=== PATIENT | male | born 1940 | race Caucasian/White ===

== ENCOUNTER 2020-06-22 15:47 | Observation (INO) | payer MEDICARE, OTHER ==
--- NOTE | 2020-06-22 16:20 | EDM.PDOC ---
ED HPI GENERAL MEDICAL PROBLEM - General Chief Complaint: General Stated Complaint: weak, short of breath with activity Time Seen by Provider: 06/22/20 15:50 Source of Information: Reports: Patient, Other ([facility] staff) History Limitations: Reports: No Limitations - History of Present Illness INITIAL COMMENTS - FREE TEXT/NARRATIVE: Patient sent to ER for further evaluation of increased Creatinine. Reportedly more fatigued the last few days. Staff said patient more SOB but patient denies this and says he has been SOB for years and today is unchanged. He says he feels well other than the fatigue. No other acute changes identified with ROS. Staff reported "small emesis" last night from patient "eating ice cream too quickly". No issues with eating today. - Related Data Allergies Allergy/AdvReac Type Severity Reaction Status Date / Time celecoxib [From Celebrex] Allergy Other Verified 06/22/20 15:57 dicloxacillin Allergy Other Verified 06/22/20 15:57 vancomycin Allergy Other Verified 06/22/20 15:57 Past Medical History Cardiovascular History: Reports: Aneurysm (AAA), Heart Failure, High Cholesterol Respiratory History: Reports: COPD, Sleep Apnea, Other (See Below) (Asbestosis) Gastrointestinal History: Reports: Chronic Constipation, GERD Genitourinary History: Reports: BPH, Chronic Renal Insuffiency Musculoskeletal History: Reports: Back Pain, Chronic, Osteoporosis, Other (See Below) (chronic generalized weakness) Neurological History: Reports: Neuropathy, Peripheral, Other (See Below) (Ataxia) Psychiatric History: Reports: Anxiety, Dementia, Depression Endocrine/Metabolic History: Reports: Diabetes, Type II, Hypothyroidism Hematologic History: Reports: Anemia (chronic disease), Other (See Below) (thrombocytopenia) - Infectious Disease History Infectious Disease History: Reports: MRSA ED ROS GENERAL - Review of Systems Review Of Systems: Comprehensive ROS is negative, except as noted in HPI. ED EXAM, GENERAL - Physical Exam Exam: See Below Exam Limited By: No Limitations General Appearance: Alert, WD/WN, No Apparent Distress Eye Exam: Bilateral Eye: EOMI, PERRL Ears: Hearing Grossly Normal Nose: No: Nasal Deformity, Nasal Swelling, Nasal Drainage Throat/Mouth: Normal Lips, Normal Voice, No Airway Compromise Head: Atraumatic, Normocephalic Neck: Supple, Non-Tender, Full Range of Motion Respiratory/Chest: No Respiratory Distress, Lungs Clear, Normal Breath Sounds, No Accessory Muscle Use, Chest Non-Tender Cardiovascular: Regular Rate, Rhythm, No Murmur GI/Abdominal: Soft, Non-Tender, No Distention (Male) Exam: Deferred Rectal (Males) Exam: Deferred Back Exam: No: CVA Tenderness (L), CVA Tenderness (R), Muscle Spasm Extremities: Non-Tender, No Pedal Edema, Normal Capillary Refill Neurological: Alert, Normal Cognition, No Motor/Sensory Deficits Psychiatric: Normal Affect, Normal Mood Skin Exam: Warm, Dry, Intact, Normal Color #1 Interpretation EKG Date: 06/22/20 Time: 16:54 Rhythm: Other (1st degree AV block) Rate (Beats/Min): 61 [place]: Normal P-Wave: Present QRS: RBBB ST-T: Normal QT: Normal Comparison: NA - No Prior EKG Course - Vital Signs Last Recorded V/S: Last Vital Signs Temp 36.8 C 06/22/20 15:51 Pulse 73 06/22/20 15:51 Resp 18 06/22/20 15:51 BP 140/75 06/22/20 15:51 Pulse Ox 95 06/22/20 15:51 - Orders/Labs/Meds Orders: Active Orders 24 hr Category Date Time Status EKG Documentation Completion [RC] ASDIRECTED Care 06/22/20 16:17 Active Chest 1V Frontal [CR] Stat Exams 06/22/20 16:15 Taken Sodium Chloride 0.9% [Normal Saline] 500 ml Med 06/22/20 16:30 Active IV .BOLUS Sodium Chloride 0.9% [Saline Flush] Med 06/22/20 16:29 Active 10 ml FLUSH ASDIRECTED PRN Isolation [COMM] Routine Oth 06/22/20 16:17 Active Saline Lock Insert [OM.PC] Routine Oth 06/22/20 16:29 Ordered EKG 12 Lead [EK] Stat Ther 06/22/20 16:17 Ordered Medication Orders Sodium Chloride (Normal Saline) 500 mls @ 500 mls/hr IV .BOLUS ALCON Last Admin: 06/22/20 17:04 Dose: 500 mls/hr Documented by: SALVADOR Sodium Chloride (Saline Flush) 10 ml FLUSH ASDIRECTED PRN PRN Reason: Keep Vein Open Last Admin: 06/22/20 17:04 Dose: 10 ml Documented by: SALVADOR Labs: Laboratory Tests 06/22/20 06/22/20 06/22/20 Range/Units 14:00 14:00 16:40 D-Dimer, Quantitative 4230 H (0-400) ng/mL NT-Pro-B Natriuret Pep 310 H (0-125) pg/mL Specimen Type Urinblad Urine Color Yellow Urine Appearance Clear Urine pH 5.5 (5.0-9.0) Ur Specific [place] 1.010 (1.005-1.030) Urine Protein Negative (NEGATIVE) mg/dL Urine Glucose (UA) Negative (NEGATIVE) mg/dL Urine Ketones Negative (NEGATIVE) mg/dL Urine Occult Blood Negative (NEGATIVE) Urine Nitrite Negative (NEGATIVE) Urine Bilirubin Negative (NEGATIVE) Urine Urobilinogen 0.2 (0.2-1.0) E.U./dL Ur Leukocyte Esterase Moderate H (NEGATIVE) U Hyaline Cast (Auto) Few Urine RBC Not seen /HPF Urine WBC 0-5 /HPF Ur Epithelial Cells Rare /LPF Urine Bacteria Rare (NONE TO FEW) /HPF Urine Mucus Rare H (NEGATIVE) /LPF Meds: Medications Generic Name Dose Route Start Last Admin Trade Name Freq PRN Reason Stop Dose Admin Sodium Chloride 500 mls @ 500 mls/hr 06/22/20 16:30 06/22/20 17:04 Normal Saline IV 500 mls/hr .BOLUS ALCON Administration Sodium Chloride 10 ml 06/22/20 16:29 06/22/20 17:04 Saline Flush FLUSH 10 ml ASDIRECTED PRN Administration Keep Vein Open - Radiology Interpretation Free Text/Narrative:: Patchy changes on xray/may reflect pneumonia - Re-Assessments/Exams Free Text/Narrative Re-Assessment/Exam: 06/22/20 17:57 Normal WBC. Anemia noted. Platelets 92. Potassium 5 Cr 2.48 (1.6 when checked several months ago) LFTs normal. DDimer elevated to over 4000. Unable to scan for PE due to renal dysfunction. Covid testing performed at [facility] yesterday/results pending. Cannot rule out Covid infection at this time. Call placed to [facility] in [place] and patient discussed with . She will contact us regarding transfer and admission to their facility after looking at their bed status. 19:20 No bed available at [facility]. They gave permission for outside hospitalization. Also no available beds at [facility] or [facility] where they have ability to perform VQ scan. Plan at this time is to admit observation here and give fluids to see if creatinine can be improved to point were PE scan can be performed. Will also test for Covid in AM. Patient agreeable with plan. Departure - Departure Time of Disposition: 19:23 Disposition: Refer to Observation Condition: Good Clinical Impression: Elevated creatine kinase level, Elevated d-dimer - Discharge Information Referrals: Trupti Quiroz PA [Primary Care Provider] - Forms: ED Department Discharge Sepsis Event Note (ED) - Evaluation Sepsis Screening Result: No Definite Risk - Focused Exam Vital Signs: Vital Signs Temp Pulse Resp BP Pulse Ox 06/22/20 15:51 36.8 C 73 18 140/75 95 - Problem List & Annotations (1) Elevated creatine kinase level SNOMED Code(s): 634099928 Code(s): R74.8 - ABNORMAL LEVELS OF OTHER SERUM ENZYMES Status: Acute Priority: High Current Visit: Yes Annotation/Comment:: Has history of stage 3 renal disease. Previous Cr of 1.6 several months ago. No etiology identified for acute change. Will give IV fluid overnight and reassess level in AM (2) Elevated d-dimer SNOMED Code(s): 535041031 Code(s): R79.89 - OTHER SPECIFIED ABNORMAL FINDINGS OF BLOOD CHEMISTRY Status: Acute Priority: High Current Visit: Yes Annotation/Comment:: Patient denies any change in chronic level of SOB. [facility] felt that he was worse recently. Elevated DDimer noted. No history of previous PEs. Unable to perform CT scan due to renal function. Unable to transfer to [place] for VQ due to no available beds. Plan at this time is to hydrate patient with IV fluids and see if Cr can be improved to previous level and then consider scan. If it does not improve, will need to reconsider potential transfer to [place] for VQ scan to fully rule out PE. Is it noted that pt has normal respiratory rate and O2 sats currently. No chest pain complaint. (3) Chronic kidney disease SNOMED Code(s): 654516163 Code(s): N18.9 - CHRONIC KIDNEY DISEASE, UNSPECIFIED Status: Acute Priority: Medium Current Visit: Yes Qualifiers: Chronic kidney disease stage: stage 3 (moderate) (4) COPD (chronic obstructive pulmonary disease) SNOMED Code(s): 49622080 Code(s): J44.9 - CHRONIC OBSTRUCTIVE PULMONARY DISEASE, UNSPECIFIED Status: Chronic Priority: Low Current Visit: No Qualifiers: COPD type: unspecified COPD Qualified Code(s): J44.9 - Chronic obstructive pulmonary disease, unspecified (5) Heart failure SNOMED Code(s): 63777512 Code(s): I50.9 - HEART FAILURE, UNSPECIFIED Status: Chronic Priority: Low Current Visit: No Annotation/Comment:: stable per history. Pro BNP 1717 tonight. No evidence of acute overload noted on physical exam. Qualifiers: Heart failure type: unspecified (6) Diabetes SNOMED Code(s): 74253042 Code(s): E11.9 - TYPE 2 DIABETES MELLITUS WITHOUT COMPLICATIONS Status: Acute Priority: Medium Current Visit: No Qualifiers: Diabetes mellitus type: type 2 - Problem List Review Problem List Initiated/Reviewed/Updated: Yes - My Orders Last 24 Hours: My Active Orders 06/22/20 16:15 Chest 1V Frontal [CR] Stat 06/22/20 16:17 EKG Documentation Completion [RC] ASDIRECTED Isolation [COMM] Routine EKG 12 Lead [EK] Stat 06/22/20 16:29 Sodium Chloride 0.9% [Saline Flush] 10 ml FLUSH ASDIRECTED PRN Saline Lock Insert [OM.PC] Routine 06/22/20 16:30 Sodium Chloride 0.9% [Normal Saline] 500 ml IV .BOLUS - Assessment/Plan Admission H&P: Please use this note as an admission H&P Last 24 Hours: My Active Orders 06/22/20 16:15 Chest 1V Frontal [CR] Stat 06/22/20 16:17 EKG Documentation Completion [RC] ASDIRECTED Isolation [COMM] Routine EKG 12 Lead [EK] Stat 06/22/20 16:29 Sodium Chloride 0.9% [Saline Flush] 10 ml FLUSH ASDIRECTED PRN Saline Lock Insert [OM.PC] Routine 06/22/20 16:30 Sodium Chloride 0.9% [Normal Saline] 500 ml IV .BOLUS Assessment:: as above. Patient stable and suitable for general supervision Plan: as above. Anticipate 1-2 day stay while renal response to IV fluids assessed and decision made regarding further evaluation of elevated DDimer.
[2020-06-22] MEDS ORDERED: Sodium Chloride 0.9% 10 ML Syringe FLUSH PRN (16:29)
[2020-06-22] MEDS ORDERED: Sodium Chloride 0.9% 500 ML IV SCH (16:30)
[2020-06-22] MEDS ORDERED: Sodium Chloride 0.9% 1,000 ML IV ONE (19:41)
[2020-06-22] MEDS ORDERED: Albuterol 8 GM Inhaler INH PRN (23:02)
[2020-06-23] MEDS ORDERED: Sodium Chloride 0.9% 1,000 ML IV SCH (05:00)
[2020-06-23] MEDS ORDERED: Omeprazole 20 MG Cap.CR PO SCH (08:00)
[2020-06-23] MEDS ORDERED: Lisinopril 20 MG Tab PO SCH (08:00)
[2020-06-23] MEDS ORDERED: Furosemide 20 MG Tab PO SCH (08:00)
[2020-06-23] MEDS ORDERED: Finasteride 5 MG Tab PO SCH (08:00)
[2020-06-23] MEDS ORDERED: traMADol 50 MG Tab PO SCH (08:00)
[2020-06-23] MEDS ORDERED: Mometasone Furoate HFA 200 mcg/Puff 13 GM Inhaler INH SCH (08:00)
[2020-06-23] MEDS ORDERED: Aspirin 81 MG Tab.EC PO SCH (08:00)
[2020-06-23] MEDS ORDERED: amLODIPine 5 MG Tab PO SCH (08:00)
[2020-06-23] MEDS: Ferrous Sulfate 325 MG Tab PO SCH ×2 (08:34→12:39)
[2020-06-23] MEDS ORDERED: BUPROPION HCL 100 MG PO SCH (09:00)
[2020-06-23] MEDS ORDERED: Enoxaparin 30 MG/0.3 ML Syringe SUBCUT ONE (10:41)
[2020-06-23] MEDS ORDERED: Albuterol 6.7 GM Inhaler INH PRN (14:13)
--- NOTE | 2020-06-23 16:15 | PCM.DCSUM1 ---
Discharge Summary - Hospital Course Brief History: Patient admitted for further evaluation and treatment of complaints of creatinine elevation/fatigue. Diagnosis: Stroke: No - Discharge Data Discharge Date: 06/23/20 Discharge Disposition: Home, Self-Care 01 Condition: Good - Referral to Home Health Primary Care Physician: BOOGIE Marvin - Discharge Diagnosis/Problem(s) (1) Elevated creatine kinase level SNOMED Code(s): 391488540 ICD Code: R74.8 - ABNORMAL LEVELS OF OTHER SERUM ENZYMES Status: Acute Priority: High Current Visit: Yes Problem Details: Has history of stage 3 renal disease. Previous Cr of 1.6 several months ago. No etiology identified for acute change. Received IV fluid overnight with some improvement of creatinine level, however still above 2.0 Renal US today showed polycystic kidneys, enlarged prostate, and thickened bladder wall. No hydronephrosis. UA unremarkable. Patient to follow up tomorrow with PCP. Recommend referral to urology and nephrology for ongoing follow up/evaluation. (2) Elevated d-dimer SNOMED Code(s): 692185265 ICD Code: R79.89 - OTHER SPECIFIED ABNORMAL FINDINGS OF BLOOD CHEMISTRY Status: Acute Priority: High Current Visit: Yes Problem Details: Patient denies any change in chronic level of SOB. [facility] felt that he was worse recently. Elevated DDimer noted. No history of previous PEs. Unable to perform CT scan due to renal function. No chest pain complaint. O2 sats upper 90s/normal respiratory rate. No clinical evidence of PE. Normal LE US to rule out DVT. Patient denies increased SOB. Primary provider Valdo contacted and patient will follow up with her for referral as outpatient to [place] for VQ (3) Enlarged prostate SNOMED Code(s): 146855983 ICD Code: N40.0 - BENIGN PROSTATIC HYPERPLASIA WITHOUT LOWER URINRY TRACT SYMP Status: Acute Priority: High Current Visit: Yes Problem Details: Found to have enlarged prostate on US. 5.4x4.9x4.8cm. No significant urinary retention noted on US. May be having some renal effect. Patient will need referral to urology by PCP. (4) Polycystic kidney SNOMED Code(s): 920191111 ICD Code: Q61.3 - POLYCYSTIC KIDNEY, UNSPECIFIED Status: Acute Priority: Medium Current Visit: Yes Problem Details: Polycyctic kidneys noted on US study. Recommend PCP refer patient to nephrology for further evaluation. (5) Chronic kidney disease SNOMED Code(s): 537101147 ICD Code: N18.9 - CHRONIC KIDNEY DISEASE, UNSPECIFIED Status: Acute Priority: Medium Current Visit: Yes Qualifiers: Chronic kidney disease stage: stage 3 (moderate) (6) COPD (chronic obstructive pulmonary disease) SNOMED Code(s): 22756569 ICD Code: J44.9 - CHRONIC OBSTRUCTIVE PULMONARY DISEASE, UNSPECIFIED Status: Chronic Priority: Low Current Visit: No Qualifiers: COPD type: unspecified COPD Qualified Code(s): J44.9 - Chronic obstructive pulmonary disease, unspecified (7) Heart failure SNOMED Code(s): 46663145 ICD Code: I50.9 - HEART FAILURE, UNSPECIFIED Status: Chronic Priority: Low Current Visit: No Problem Details: stable per history. Pro BNP 1717 tonight. No evidence of acute overload noted on physical exam. Qualifiers: Heart failure type: unspecified (8) Diabetes SNOMED Code(s): 04907567 ICD Code: E11.9 - TYPE 2 DIABETES MELLITUS WITHOUT COMPLICATIONS Status: Acute Priority: Medium Current Visit: No Qualifiers: Diabetes mellitus type: type 2 - Patient Summary/Data Hospital Course: [facility] contacted and declined patient's admission to their facility as they had no available beds. Patient admitted observation here and received IV fluids to see if any significant improvement would result in regards to kidney functio n. DDimer elevated but unable to perform CT angio for further evaluation/rule out blood clots. As noted above, patient denied any chest pain or increased SOB. It was [facility] that felt he appeared more SOB. Unable to send to [facility] or [place] for VQ due to facilities being on divert. Patient rested comfortably overnight. Vital signs stable. No evidence of any acute respiratory issues or other signs of illness observed. Recheck of labs showed some improvement of renal function but not enough to allow for CT angio. Call placed again to [facility] in [place] and they felt that patient could follow up for VQ at [facility] as outpatient and no immediate transfer indicated. Options discussed with patient. He would like to have PE formally ruled out but again said that he currently feels fine. He wished for discharge back to [facility] and will follow up with Valdo at clinic to get VQ scan coordinated. As a precaution, US study of both lower legs performed that was negative for DVT. Given the elevated Creatinine, renal US performed and he was noted to have very enlarged prostate. No obvious urine retention noted on US, however suspect that he may be having retention issues that could be affecting renal function. Also noted to have polycystic kidneys and wall thickening of bladder. Normal UA. No hydronephrosis. To discuss referral to Urology/Nephrology at follow up with Valdo. Call placed to Valdo and she was updated as to all of the above and will be following up with the patient for above concerns. Negative Covid test - Patient Instructions Diet: Usual Diet as Tolerated Other/Special Instructions: Follow up GISELLE with your provider, Valdo. You need referral arranged to see Nephrology, Urology, and also have a VQ scan scheduled at [facility]. Follow up otherwise as needed if you have sudden worsening problems. - Discharge Plan Home Medications: Home Meds Albuterol Sulfate [Proair Respiclick] 2 puff IH Q4HR PRN 06/22/20 [History] Aspirin [Aspirin EC] 81 mg PO DAILY 06/22/20 [History] Budesonide/Formoterol [Symbicort 160-4.5 MCG] 2 puff INH BID 06/22/20 [History] Cholecalciferol (Vitamin D3) [Vitamin D3] 2,000 unit PO DAILY 06/22/20 [History] Ferrous Sulfate 325 mg PO TID 06/22/20 [History] Finasteride 5 mg PO DAILY 06/22/20 [History] Fluticasone Propionate [Flonase] 2 spray NS DAILY 06/22/20 [History] Furosemide 20 mg PO DAILY 06/22/20 [History] Gabapentin [Neurontin] 600 mg PO 2000 06/22/20 [History] Lactobacillus Acidophilus [Acidophilus] 1 each PO DAILY 06/22/20 [History] Levothyroxine Sodium [Synthroid] 175 mcg PO ACBREAKFAST 06/22/20 [History] Lidocaine 5% [Lidoderm 5%] 1 patch TOP Q12HR PRN 06/22/20 [History] Omeprazole 20 mg PO DAILY 06/22/20 [History] Sennosides/Docusate Sodium [Senna-S 8.6-50 mg Tablet] 1 each PO BID 06/22/20 [History] Tamsulosin [Tamsulosin 24 Hr] 0.4 mg PO 199906/22/20 [History] amLODIPine [Norvasc] 10 mg PO DAILY 06/22/20 [History] atorvaSTATin [Lipitor] 20 mg PO BEDTIME 06/22/20 [History] buPROPion HCL [Bupropion HCl Sr] 100 mg PO ,16 06/22/20 [History] lisinopriL [Prinivil] 20 mg PO DAILY 06/22/20 [History] traMADol [Ultram] 50 mg PO BID 06/22/20 [History] Forms: ED Department Discharge Referrals: Trupti Quiroz PA [Primary Care Provider] - - Discharge Summary/Plan Comment DC Time >30 min.: No - General Info Date of Service: 06/23/20 Admission Dx/Problem (Free Text: Elevated creatinine/enlarged prostate/polycystic kidneys/elevated DDimer Subjective Update: Patient feels fine overall. Would like to be discharged. Functional Status: Reports: Pain Controlled, Tolerating Diet, Ambulating, Urinating. Denies: New Symptoms - Review of Systems General: Reports: Fatigue (mild). Denies: Fever, Malaise, Chills, Night Sweats HEENT: Reports: No Symptoms Pulmonary: Reports: No Symptoms Cardiovascular: Reports: No Symptoms Gastrointestinal: Reports: No Symptoms Genitourinary: Reports: No Symptoms Musculoskeletal: Reports: No Symptoms, Other (no acute changes from baseline) Skin: Reports: No Symptoms Neurological: Denies: Headache, Paresthesia, Trouble Speaking, Difficulty Walking, Change in Speech Psychiatric: Reports: No Symptoms - Patient Data Vitals - Most Recent: Last Vital Signs Temp 36.4 C 06/23/20 12:40 Pulse 57 L 06/23/20 12:40 Resp 18 06/23/20 12:40 BP 147/72 H 06/23/20 12:40 Pulse Ox 95 06/23/20 12:40 Weight - Most Recent: 75.115 kg I&O - Last 24 hours: Intake & Output 06/23/20 06/23/20 06/23/20 06:59 14:59 22:59 Intake Total 1000 500 Output Total 200 Balance 800 500 Lab Results - Last 24 hrs: Laboratory Results - last 24 hr 06/22/20 06/22/20 06/22/20 Range/Units 14:00 14:00 16:40 WBC (4.0-10.2) K/uL RBC (4.33-5.41) M/uL Hgb (13.1-16.8) g/dL Hct (39.0-49.0) % MCV (84.0-98.0) fL MCH (28.2-33.3) pg MCHC (31.7-36.0) g/dL RDW (11.2-14.1) % Plt Count (150-350) K/uL Neut % (Auto) (45.0-80.0) % Lymph % (Auto) (10.0-50.0) % [place] % (Auto) (2.0-14.0) % Eos % (Auto) (0.0-5.0) % Baso % (Auto) (0.0-2.0) % Neut # (Auto) (1.40-7.00) K/uL Lymph # (Auto) (0.50-3.50) K/uL [place] # (Auto) (0.00-1.00) K/uL Eos # (Auto) (0.00-0.50) K/uL Baso # (Auto) (0.00-0.20) K/uL D-Dimer, Quantitative 4230 H (0-400) ng/mL Sodium (136-145) mmol/L Potassium (3.5-5.1) mmol/L Chloride (98-107) mmol/L Carbon Dioxide (21.0-32.0) mmol/L BUN (7-18) mg/dL Creatinine (0.51-1.17) mg/dL Est Cr Clr Drug Dosing mL/min Estimated GFR (MDRD) mL/min Glucose (74-106) mg/dL Calcium (8.5-10.1) mg/dL NT-Pro-B Natriuret Pep 310 H (0-125) pg/mL Specimen Type Urinblad Urine Color Yellow Urine Appearance Clear Urine pH 5.5 (5.0-9.0) Ur Specific Lynn 1.010 (1.005-1.030) Urine Protein Negative (NEGATIVE) mg/dL Urine Glucose (UA) Negative (NEGATIVE) mg/dL Urine Ketones Negative (NEGATIVE) mg/dL Urine Occult Blood Negative (NEGATIVE) Urine Nitrite Negative (NEGATIVE) Urine Bilirubin Negative (NEGATIVE) Urine Urobilinogen 0.2 (0.2-1.0) E.U./dL Ur Leukocyte Esterase Moderate H (NEGATIVE) U Hyaline Cast (Auto) Few Urine RBC Not seen /HPF Urine WBC 0-5 /HPF Ur Epithelial Cells Rare /LPF Urine Bacteria Rare (NONE TO FEW) /HPF Urine Mucus Rare H (NEGATIVE) /LPF SARS-CoV-2 RNA ([place]) (NEGATIVE) 06/23/20 06/23/20 06/23/20 Range/Units 07:05 07:05 08:20 WBC 3.6 L (4.0-10.2) K/uL RBC 3.18 L (4.33-5.41) M/uL Hgb 10.0 L (13.1-16.8) g/dL Hct 31.9 L (39.0-49.0) % MCV 100.3 H (84.0-98.0) fL MCH 31.4 (28.2-33.3) pg MCHC 31.3 L (31.7-36.0) g/dL RDW 13.2 (11.2-14.1) % Plt Count 82 L (150-350) K/uL Neut % (Auto) 51.0 (45.0-80.0) % Lymph % (Auto) 26.4 (10.0-50.0) % [place] % (Auto) 14.3 H (2.0-14.0) % Eos % (Auto) 8.0 H (0.0-5.0) % Baso % (Auto) 0.3 (0.0-2.0) % Neut # (Auto) 1.85 (1.40-7.00) K/uL Lymph # (Auto) 0.96 (0.50-3.50) K/uL [place] # (Auto) 0.52 (0.00-1.00) K/uL Eos # (Auto) 0.29 (0.00-0.50) K/uL Baso # (Auto) 0.01 (0.00-0.20) K/uL D-Dimer, Quantitative (0-400) ng/mL Sodium 144 (136-145) mmol/L Potassium 4.3 (3.5-5.1) mmol/L Chloride 111 H (98-107) mmol/L Carbon Dioxide 25.6 (21.0-32.0) mmol/L BUN 28 H (7-18) mg/dL Creatinine 2.17 H (0.51-1.17) mg/dL Est Cr Clr Drug Dosing 22.80 mL/min Estimated GFR (MDRD) 29 mL/min Glucose 90 (74-106) mg/dL Calcium 7.8 L (8.5-10.1) mg/dL NT-Pro-B Natriuret Pep (0-125) pg/mL Specimen Type Urine Color Urine Appearance Urine pH (5.0-9.0) Ur Specific Lynn (1.005-1.030) Urine Protein (NEGATIVE) mg/dL Urine Glucose (UA) (NEGATIVE) mg/dL Urine Ketones (NEGATIVE) mg/dL Urine Occult Blood (NEGATIVE) Urine Nitrite (NEGATIVE) Urine Bilirubin (NEGATIVE) Urine Urobilinogen (0.2-1.0) E.U./dL Ur Leukocyte Esterase (NEGATIVE) U Hyaline Cast (Auto) Urine RBC /HPF Urine WBC /HPF Ur Epithelial Cells /LPF Urine Bacteria (NONE TO FEW) /HPF Urine Mucus (NEGATIVE) /LPF SARS-CoV-2 RNA ([place]) Negative (NEGATIVE) [place] Results - Last 24 hrs: Microbiology 06/22/20 16:17 Influenza Type A Antigen Screen - Final Nasal Aspirate, Unspecified NEGATIVE INFLUENZA A VIRUS AG REFERENCE RANGE: NEGATIVE Influenza Type B Antigen Screen - Final NEGATIVE INFLUENZA B VIRUS AG REFERENCE RANGE: NEGATIVE Med Orders - Current: Current Medications Albuterol (Proventil Hfa) 0 gm INH Q4HR PRN PRN Reason: shortness of breath Amlodipine Besylate (Norvasc) 10 mg PO DAILY [facility] Last Admin: 06/23/20 08:36 Dose: 10 mg Documented by: Aspirin (Halfprin) 81 mg PO DAILY [facility] Last Admin: 06/23/20 08:32 Dose: 81 mg Documented by: Atorvastatin Calcium (Lipitor) 20 mg PO BEDTIME [facility] Ferrous Sulfate (Ferrous Sulfate) 325 mg PO TID [facility] Last Admin: 06/23/20 12:39 Dose: 325 mg Documented by: Finasteride (Proscar) 5 mg PO DAILY [facility] Last Admin: 06/23/20 08:30 Dose: 5 mg Documented by: Furosemide (Lasix) 20 mg PO DAILY [facility] Last Admin: 06/23/20 08:35 Dose: 20 mg Documented by: Gabapentin (Neurontin) 600 mg PO 1999 [facility] Sodium Chloride (Normal Saline) 1,000 mls @ 75 mls/hr IV ASDIRECTED [facility] Last Admin: 06/23/20 04:47 Dose: 75 mls/hr Documented by: Influenza Virus Vaccine (Pharmacy To Dose - Influenza Vaccine) 1 each IM ONETIME ONE Stop: 06/23/20 10:04 Levothyroxine Sodium (Levothyroxine) 175 mcg PO ACBREAKFAST [facility] Last Admin: 06/23/20 08:32 Dose: 175 mcg Documented by: Lisinopril (Prinivil) 20 mg PO DAILY [facility] Last Admin: 06/23/20 08:31 Dose: 20 mg Documented by: Mometasone Furoate (Asmanex Hfa 200mcg) 2 gm INH BID [facility] Last Admin: 06/23/20 08:50 Dose: 2 puff Documented by: Non-Formulary Medication (Bupropion Hcl [Bupropion Hcl Sr]) 100 mg PO [facility] Omeprazole (Omeprazole) 20 mg PO DAILY [facility] Last Admin: 06/23/20 08:32 Dose: 20 mg Documented by: Senna/Docusate Sodium (Senna Plus) 1 tab PO BID [facility] Last Admin: 06/23/20 08:40 Dose: 1 tab Documented by: Sodium Chloride (Saline Flush) 10 ml FLUSH ASDIRECTED PRN PRN Reason: Keep Vein Open Last Admin: 06/22/20 17:04 Dose: 10 ml Documented by: Tamsulosin HCl (Flomax) 0.4 mg PO 1999 [facility] Tramadol HCl (Ultram) 50 mg PO BID [facility] Last Admin: 06/23/20 08:30 Dose: 50 mg Documented by: Discontinued Medications Albuterol (Ventolin Hfa) 0 gm INH Q4HR PRN PRN Reason: shortness of breath Enoxaparin Sodium (Lovenox) 30 mg SUBCUT ONETIME ONE Stop: 06/23/20 10:42 Last Admin: 06/23/20 12:39 Dose: 30 mg Documented by: Sodium Chloride (Normal Saline) 500 mls @ 500 mls/hr IV .BOLUS [facility] Last Admin: 06/22/20 17:04 Dose: 500 mls/hr Documented by: Sodium Chloride (Normal Saline) 1,000 mls @ 125 mls/hr IV .BOLUS ONE Stop: 06/23/20 03:40 Last Admin: 06/22/20 20:32 Dose: 125 mls/hr Documented by: - Exam General: Reports: Alert, Cooperative, No Acute Distress HEENT: Reports: Pupils Equal, Pupils Reactive, EOMI, Mucous Membr. Moist/[place] Neck: Reports: Supple Lungs: Reports: Clear to Auscultation, Normal Respiratory Effort Cardiovascular: Reports: Regular Rate, Regular Rhythm GI/Abdominal Exam: Normal Bowel Sounds, Soft, Non-Tender, No Distention (Male) Exam: Deferred Rectal (Males) Exam: Deferred Back Exam: Denies: CVA Tenderness (L), CVA Tenderness (R), Muscle Spasm Extremities: Non-Tender, Normal Capillary Refill Skin: Reports: Warm, Dry Neurological: Reports: No New Focal Deficit Psy/Mental Status: Reports: Alert, Normal Affect, Normal Mood
[2020-06-23] MEDS ORDERED: Tamsulosin 0.4 MG Cap.ER PO SCH (20:00)
[2020-06-23] MEDS ORDERED: atorvaSTATin 10 MG Tab PO SCH (20:00)
[2020-06-23] MEDS ORDERED: Gabapentin 300 MG Cap PO SCH (20:00)
== END 2020-06-23 17:14 | disposition home or self-care (01) ==
LOC: LL.ED 15:47 → LL.MS 18:48 → UNDOADMOB 18:48 → LL.MS 19:35
PROVIDERS: ADMIT Emergency Medicine; ATTEND Emergency Medicine
DX: R74.8 Abnormal levels of other serum enzymes (principal); R79.89 Other specified abnormal findings of blood chemistry; E78.00 Pure hypercholesterolemia, unspecified; I50.9 Heart failure, unspecified; J44.9 Chronic obstructive pulmonary disease, unspecified; N18.9 Chronic kidney disease, unspecified; G89.29 Other chronic pain; G47.30 Sleep apnea, unspecified; G62.9 Polyneuropathy, unspecified; F41.9 Anxiety disorder, unspecified; F32.9 Major depressive disorder, single episode, unspecified; E11.22 Type 2 diabetes mellitus with diabetic chronic kidney disease; E03.9 Hypothyroidism, unspecified; Z88.8 Allergy status to other drugs, medicaments and biological substances; Z88.1 Allergy status to other antibiotic agents; Z20.828 Contact with and (suspected) exposure to other viral communicable diseases
CPT/HCPCS: 36415; 71045; 76770; 80048; 81001; 83880; 85025; 85379; 87804; 93005; 93970; 99285; A9270; J1650; J7030; J7040; U0002; 96360

== ENCOUNTER 2020-07-25 11:29 | Emergency (ER) | payer MEDICARE ==
[2020-07-25] MEDS ORDERED: Sodium Chloride 0.9% 10 ML Syringe FLUSH PRN (11:32)
--- NOTE | 2020-07-25 11:32 | EDM.PDOC ---
ED HPI GENERAL MEDICAL PROBLEM - General Chief Complaint: Respiratory Problem Stated Complaint: low O2 sat Time Seen by Provider: 07/25/20 11:30 Source of Information: Reports: Patient, EMS, Old Records ([facility] EMR. No paper hospital chart available.). Denies: EMS Notes Reviewed (Not available at time of dictation) History Limitations: Reports: Altered Mental Status, Other - History of Present Illness INITIAL COMMENTS - FREE TEXT/NARRATIVE: The patient was brought to the emergency room via ambulance with make up worker accompaniment with O2 initiated at 6 L/min by mask therapy. Note that the patient had some moderate to severe hypoxia with O2 sat of only 65% while taking a shower at the [place] [facility] earlier this morning. 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 The nurses at the [place] [facility] did initiate O2 at 4 L/min by mask with improvement to 90% prior to discharge, however O2 sat of only 88 to 89% by the paramedics at time of their arrival with increased O2 therapy prior to transfer as above. They did not do any other treatment prior to patient's arrival to this facility. The patient denies any chest pain/pressure, heart flutter, dizziness, orthostasis, orthopnea, diaphoresis, paresthesias, recent decreased exercise tolerance, or any other anginal-type symptoms. No recent history of abdominal pain, heartburn, nausea, diarrhea, melena, gross hematochezia, or any food intolerance, including fatty foods, etc.. He denies any gross hematuria, colic, or other UTI symptoms. The patient also denies any recent fever, cough, wheezing, dyspnea, etc., despite significant hypoxia as above. Apparently stable neurological status and confusion based on limited records and history from the [place] [facility]. The patient denies any specific pain or discomfort. Onset: Today Duration: Other (No pain) Severity: Severe (Hypoxia as above) Improves with: Reports: Other (Oxygen) Worsens with: Reports: None Context: Reports: Other (As above). Denies: Sick Contact, Trauma Associated Symptoms: Reports: Confusion (Stable chronic), Shortness of Breath. Denies: Chest Pain, Cough, Diaphoresis, Fever/Chills, Headaches, Loss of Appetite, Malaise, Nausea/Vomiting, Rash, Seizure, Syncope, Weakness Treatments RESEARCH LABORATORY MANAGER: Reports: Oxygen - Related Data Allergies Allergy/AdvReac Type Severity Reaction Status Date / Time celecoxib [From Celebrex] Allergy Other Verified 07/25/20 12:43 dicloxacillin Allergy Other Verified 07/25/20 12:43 vancomycin Allergy Other Verified 07/25/20 12:43 Home Meds: Home Meds Albuterol Sulfate [Proair Respiclick] 2 puff IH Q4HR PRN 06/22/20 [History] Aspirin [Aspirin EC] 81 mg PO DAILY 06/22/20 [History] Budesonide/Formoterol [Symbicort 160-4.5 MCG] 2 puff INH BID 06/22/20 [History] Cholecalciferol (Vitamin D3) [Vitamin D3] 2,000 unit PO DAILY 06/22/20 [History] Ferrous Sulfate 325 mg PO TID 06/22/20 [History] Finasteride 5 mg PO DAILY 06/22/20 [History] Fluticasone Propionate [Flonase] 2 spray NS DAILY 06/22/20 [History] Furosemide 20 mg PO DAILY 06/22/20 [History] Gabapentin [Neurontin] 600 mg PO 199906/22/20 [History] Levothyroxine Sodium [Synthroid] 175 mcg PO ACBREAKFAST 06/22/20 [History] Lidocaine 5% [Lidoderm 5%] 1 patch TOP Q12HR PRN 06/22/20 [History] Omeprazole 20 mg PO DAILY 06/22/20 [History] Sennosides/Docusate Sodium [Senna-S 8.6-50 mg Tablet] 1 each PO BID 06/22/20 [History] Tamsulosin [Tamsulosin 24 Hr] 0.4 mg PO 199906/22/20 [History] amLODIPine [Norvasc] 5 mg PO DAILY 06/22/20 [History] atorvaSTATin [Lipitor] 20 mg PO BEDTIME 06/22/20 [History] buPROPion HCL [Bupropion HCl Sr] 100 mg PO ,16 06/22/20 [History] lisinopriL [Prinivil] 40 mg PO DAILY 06/22/20 [History] traMADol [Ultram] 50 mg PO BID 06/22/20 [History] Lactobacillus Acidophilus [Acidophilus] 1 each PO DAILY 07/25/20 [History] guaiFENesin 2 tsp PO Q6H PRN 07/25/20 [History] Past Medical History HEENT History: Reports: Allergic Rhinitis, Hard of Hearing, Impaired Vision, Other (See Below) Other HEENT History: Nasal septal deviation. Dry eye syndrome. Presbycusis. Cardiovascular History: Reports: Aneurysm, Cardiomyopathy, Heart Failure, High Cholesterol, Hypertension, Other (See Below). Denies: CAD, Heart Murmur, NV Other Cardiovascular History: AAA. First-degree AV block, complete right bundle branch block. D-dimer elevation initially diagnosed on 06/23/2020. Recurrent CHF with diastolic dysfunction. Respiratory History: Reports: Bronchitis, Recurrent, COPD, Intubation, Previous, Pneumonia, Recurrent, Pulmonary Fibrosis, Sleep Apnea, Other (See Below). 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 Gastrointestinal History: Reports: Chronic Constipation, Colon Polyp, GERD Genitourinary History: Reports: BPH, Chronic Renal Insuffiency, Diabetic Nephropathy, Prostate Disorder, Other (See Below) Other Genitourinary History: Bilateral renal cysts versus polycystic renal disease. Diabetic nephropathy. Musculoskeletal History: Reports: Arthritis, Back Pain, Chronic, Fracture, Osteoarthritis, Osteoporosis, Other (See Below) Other Musculoskeletal History: Right hip fracture with surgery as below. 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 Neurological History: Reports: Alzheimers Disease, Cerebral Palsy, Neuropathy, Diabetic, Neuropathy, Peripheral, Other (See Below) Other Neuro History: Beginning organic brain syndrome. Generalized weakness. Psychiatric History: Reports: Anxiety, Dementia, Depression Endocrine/Metabolic History: Reports: Diabetes, Type II, Hypothyroidism, Osteopenia, Osteoporosis. Denies: Diabetes, Type I, IDDM Hematologic History: Reports: Anemia, Other (See Below) Other Hematologic History: Chronic anemia. Thrombocytopenia. Dermatologic History: Reports: Venous Stasis Dermatitis - Infectious Disease History Infectious Disease History: Reports: MRSA - Past Surgical History HEENT Surgical History: Reports: Cataract Surgery GI Surgical History: Reports: Colonoscopy Musculoskeletal Surgical History: Reports: Joint Replacement, Other (See Below) Other Musculoskeletal Surgeries/Procedures:: Right hip TEP. - Past Imaging History Past Imaging History: Reports: Ultrasound (Bilateral renal ultrasound on 06/23/2020.), Venous Doppler (Lower extremities bilaterally negative on 06/23/2020.) - History Comment History Comment: Note incomplete history secondary to mild organic brain syndrome. Social & Family History - Family History Family Medical History: Unobtainable - Caffeine Use Caffeine Use: Reports: Coffee - Living Situation & Occupation Living situation: Reports: Extended Care Facility ([facility]) ED ROS GENERAL - Review of Systems Review Of Systems: Comprehensive ROS is negative, except as noted in HPI. ED EXAM, GENERAL - Physical Exam Exam: See Below Exam Limited By: No Limitations General Appearance: Alert, WD/WN, No Apparent Distress Eye Exam: Bilateral Eye: EOMI, Normal Inspection (No vertigo or nystagmus), PERRL Ears: Normal External Exam, Normal Canal, Normal TMs, Hearing Loss (Mild bilateral presbycusis) Nose: Normal Inspection, Normal Mucosa, No Blood Throat/Mouth: Normal Inspection, Normal Lips, Normal Gums, Normal Oropharynx, Normal Voice, No Airway Compromise. No: Normal Teeth (Complete absent dentition with no dentures), Dysphagia, Perioral Cyanosis Head: Atraumatic, Normocephalic. No: Facial Swelling, Facial Tenderness, Sinus Tenderness Neck: Supple, Non-Tender, Full Range of Motion, Carotid Bruit (Mild bilateral carotid bruits). No: Lymphadenopathy (L), Lymphadenopathy (R), Thyromegaly Respiratory/Chest: No Respiratory Distress, No Accessory Muscle Use, Chest Non- Tender, Rales (Moderate diffuse bilateral rales). No: Rhonchi, Wheezing, Pleural Rub, Retractions Cardiovascular: Normal Peripheral Pulses, Regular Rate, Rhythm, No Edema, No Gallop, No JVD, No Murmur, No Rub. No: Gallop/S3, Gallop/S4, Friction Rub Peripheral Pulses: 2+: Radial (L), Radial (R), Dorsalis Pedis (L), Dorsalis Pedis (R) GI/Abdominal: Soft, Non-Tender, No Organomegaly, No Distention, No Abnormal Bruit, No Mass, Pelvis Stable, Abnormal Bowel Sounds (Moderate diffuse increased bowel sounds nonhigh-pitched in nature), Other (Obese). No: Guarding (Male) Exam: Deferred Rectal (Males) Exam: Deferred Back Exam: Normal Inspection, Full Range of Motion. No: CVA Tenderness (L), CVA Tenderness (R), Muscle Spasm Extremities: Normal Inspection, Normal Range of Motion, Non-Tender, No Pedal Edema, Normal Capillary Refill, Other (Mild to moderate venous stasis dermatitis of the lower extremities). No: Jimenez's Sign Neurological: Alert, CN II-XII Intact, Normal Reflexes (Negative Babinski's), No Motor/Sensory Deficits, Confused (Stable baseline organic brain syndrome?). No: Oriented, Normal Cognition Psychiatric: Normal Affect, Normal Mood Skin Exam: Warm, Dry, Intact, Normal Color, No Rash, Ecchymosis (Mild right upper quadrant ecchymosis secondary to previous minor fall?), Rash (Venous stasis dermatitis as above). No: Wound/Incision Lymphatic: No Adenopathy #1 Interpretation EKG Date: 07/25/20 Time: 11:41 Rhythm: NSR Rate (Beats/Min): 85 [place]: Normal (Neutral cardiac access) P-Wave: Enlarged (Moderate diffuse biphasic P waves) QRS: RBBB (0.13 seconds representing a stable complete right bundle branch block with T wave inversion in lead V1) ST-T: Normal QT: Normal CA/PQ Interval: 0.21 seconds representing a stable first-degree AV block. Comparison: No Change (Last EKG on 06/22/2020.) EKG Interpretation Comments: 1. No acute ischemic changes 2. Complete right bundle branch block 3. Left atrial enlargement 4. First-degree AV block Course - Vital Signs Last Recorded V/S: Last Vital Signs Temp 36.8 C 07/25/20 11:30 Pulse 86 07/25/20 14:00 Resp 20 07/25/20 14:00 BP 149/68 H 07/25/20 14:00 Pulse Ox 93 L 07/25/20 14:00 Vital Signs - 24 hr 07/25/20 07/25/20 07/25/20 11:30 12:00 12:30 Temperature [ 36.8 C Temporal] Pulse, 86 83 87 Peripheral [ Left Pulse Oximetry] Respiratory 22 H 22 H 24 H Rate Blood Pressure 166/78 H 144/70 H 152/97 H [Left Upper Arm ] O2 Sat by Pulse 90 L 96 92 L Oximetry 07/25/20 07/25/20 07/25/20 13:00 13:30 14:00 Temperature [ Temporal] Pulse, 88 90 86 Peripheral [ Left Pulse Oximetry] Respiratory 23 H 20 20 Rate Blood Pressure 150/69 H 150/66 H 149/68 H [Left Upper Arm ] O2 Sat by Pulse 92 L 93 L 93 L Oximetry - Orders/Labs/Meds Orders: Active Orders 24 hr Category Date Time Status Cardiac Monitoring [RC] CONTINUOUS Care 07/25/20 11:32 Active Communication Order [RC] ROUTINE Care 07/25/20 11:32 Active EKG Documentation Completion [RC] ASDIRECTED Care 07/25/20 11:32 Active Oxygen Therapy, ED [RC] CONTINUOUS Care 07/25/20 11:32 Active Peripheral IV Care [RC] . DIRECTED Care 07/25/20 11:32 Active Pulse Oximetry [RC] CONTINUOUS Care 07/25/20 11:32 Active Up With Assistance [RC] ASDIRECTED Care 07/25/20 11:32 Active Nothing Per Oral Diet [DIET] Diet 07/25/20 Breakfast Active Chest 1V Frontal [CR] Stat Exams 07/25/20 11:32 Taken CULTURE BLOOD [BC] Stat Lab 07/25/20 12:53 Received CULTURE BLOOD [BC] Stat Lab 07/25/20 12:53 Received CULTURE SPUTUM + SMEAR [RM] Urgent Lab 07/25/20 11:32 Ordered Sodium Chloride 0.9% [Saline Flush] Med 07/25/20 11:32 Active 10 ml FLUSH ASDIRECTED PRN Blood Culture x2 Reflex Set [OM.PC] Urgent Oth 07/25/20 12:48 Ordered Obtain Past Medical Record [OM.PC] Stat Oth 07/25/20 11:32 Active Peripheral IV Insertion Adult [OM.PC] Stat Oth 07/25/20 11:32 Ordered Resuscitation Status Routine Resus Stat 07/25/20 11:56 Ordered Medication Orders Sodium Chloride (Saline Flush) 10 ml FLUSH ASDIRECTED PRN PRN Reason: Keep Vein Open Labs: Laboratory Tests 07/25/20 07/25/20 07/25/20 Range/Units 11:58 11:58 11:58 WBC 10.3 H (4.0-10.2) K/uL RBC 3.72 L (4.33-5.41) M/uL Hgb 11.6 L (13.1-16.8) g/dL Hct 37.1 L (39.0-49.0) % MCV 99.7 H (84.0-98.0) fL MCH 31.2 (28.2-33.3) pg MCHC 31.3 L (31.7-36.0) g/dL RDW 13.7 (11.2-14.1) % Plt Count 79 L (150-350) K/uL Neut % (Auto) 89.2 H (45.0-80.0) % Lymph % (Auto) 2.7 L (10.0-50.0) % [place] % (Auto) 7.7 (2.0-14.0) % Eos % (Auto) 0.2 (0.0-5.0) % Baso % (Auto) 0.2 (0.0-2.0) % Neut # (Auto) 9.20 H (1.40-7.00) K/uL Lymph # (Auto) 0.28 L (0.50-3.50) K/uL [place] # (Auto) 0.79 (0.00-1.00) K/uL Eos # (Auto) 0.02 (0.00-0.50) K/uL Baso # (Auto) 0.02 (0.00-0.20) K/uL PT 11.0 (9.5-12.0) SEC INR 1.1 APTT 21.4 L (24.5-32.8) SEC D-Dimer, Quantitative > 5000 H (0-400) ng/mL Sodium (136-145) mmol/L Potassium (3.5-5.1) mmol/L Chloride (98-107) mmol/L Carbon Dioxide (21.0-32.0) mmol/L BUN (7-18) mg/dL Creatinine (0.51-1.17) mg/dL Est Cr Clr Drug Dosing Estimated GFR (MDRD) mL/min Glucose (74-106) mg/dL Lactic Acid (0.4-2.0) mmol/L Calcium (8.5-10.1) mg/dL Magnesium (1.8-2.4) mg/dL Total Bilirubin (0.2-1.0) mg/dL AST (15-37) U/L ALT (12-78) U/L Alkaline Phosphatase (46-116) IU/L Creatine Kinase (26-308) U/L Creatine Kinase Index (0.0-2.5) % CK-MB (CK-2) (0.00-3.60) ng/mL Troponin I (0.000-0.056) ng/mL NT-Pro-B Natriuret Pep (0-125) pg/mL Total Protein (6.4-8.2) g/dL Albumin (3.4-5.0) g/dL TSH, Ultra Sensitive (0.358-3.740) mIU/mL 07/25/20 07/25/20 Range/Units 11:58 11:58 WBC (4.0-10.2) K/uL RBC (4.33-5.41) M/uL Hgb (13.1-16.8) g/dL Hct (39.0-49.0) % MCV (84.0-98.0) fL MCH (28.2-33.3) pg MCHC (31.7-36.0) g/dL RDW (11.2-14.1) % Plt Count (150-350) K/uL Neut % (Auto) (45.0-80.0) % Lymph % (Auto) (10.0-50.0) % [place] % (Auto) (2.0-14.0) % Eos % (Auto) (0.0-5.0) % Baso % (Auto) (0.0-2.0) % Neut # (Auto) (1.40-7.00) K/uL Lymph # (Auto) (0.50-3.50) K/uL [place] # (Auto) (0.00-1.00) K/uL Eos # (Auto) (0.00-0.50) K/uL Baso # (Auto) (0.00-0.20) K/uL PT (9.5-12.0) SEC INR APTT (24.5-32.8) SEC D-Dimer, Quantitative (0-400) ng/mL Sodium 141 (136-145) mmol/L Potassium 4.5 (3.5-5.1) mmol/L Chloride 108 H (98-107) mmol/L Carbon Dioxide 25.7 (21.0-32.0) mmol/L BUN 37 H (7-18) mg/dL Creatinine 1.99 H (0.51-1.17) mg/dL Est Cr Clr Drug Dosing TNP Estimated GFR (MDRD) 32 mL/min Glucose 107 H (74-106) mg/dL Lactic Acid 1.0 (0.4-2.0) mmol/L Calcium 8.3 L (8.5-10.1) mg/dL Magnesium 1.8 (1.8-2.4) mg/dL Total Bilirubin 0.5 (0.2-1.0) mg/dL AST 17 (15-37) U/L ALT 16 (12-78) U/L Alkaline Phosphatase 96 (46-116) IU/L Creatine Kinase 75 (26-308) U/L Creatine Kinase Index 1.1 (0.0-2.5) % CK-MB (CK-2) 0.80 (0.00-3.60) ng/mL Troponin I 0.000 (0.000-0.056) ng/mL NT-Pro-B Natriuret Pep 729 H (0-125) pg/mL Total Protein 6.7 (6.4-8.2) g/dL Albumin 3.6 (3.4-5.0) g/dL TSH, Ultra Sensitive 1.356 (0.358-3.740) mIU/mL Blood cultures x2 were collected. Meds: Medications Generic Name Dose Route Start Last Admin Trade Name Freq PRN Reason Stop Dose Admin Sodium Chloride 10 ml 07/25/20 11:32 Saline Flush FLUSH ASDIRECTED PRN Keep Vein Open Discontinued Medications Generic Name Dose Route Start Last Admin Trade Name Freq PRN Reason Stop Dose Admin Furosemide 60 mg 07/25/20 12:47 07/25/20 13:05 Lasix IVPUSH 07/25/20 12:48 60 mg NOW ONE Administration Levofloxacin/Dextrose 500 mg/ 100 mls @ 100 mls/hr 07/25/20 12:50 07/25/20 13:39 Premix IV 07/25/20 13:49 100 mls/hr ONETIME ONE Administration - Radiology Interpretation Free Text/Narrative:: court recording monitor shows normal sinus rhythm in the 90s with no ectopy or arrhythmia Chest x-ray, portable, shows evidence of moderate CHF with probable bilateral concomitant pulmonary infiltrates particularly in the right middle lobe. Note status post multiple right lateral old right-sided rib fractures. Moderate COPD and pulmonary fibrotic changes with a mildly prominent aortic arch with additional mild aortic valve calcification. Departure - Departure Time of Disposition: :23 Disposition: DC/Tfer to [facility] 02 Condition: Fair Clinical Impression: Confusion, Need for comfort care, D-dimer, elevated, Complete right bundle branch block, First degree AV block, Renal insufficiency COPD (chronic obstructive pulmonary disease) Qualifiers: COPD type: COPD with acute lower respiratory infection Qualified Code(s): J44.0 - Chronic obstructive pulmonary disease with (acute) lower respiratory infec tion Heart failure Qualifiers: Heart failure type: combined systolic and diastolic Heart failure chronicity: acute on chronic Qualified Code(s): I50.43 - Acute on chronic combined systolic (congestive) and diastolic (congestive) heart failure Iron deficiency anemia Qualifiers: Iron deficiency anemia type: unspecified iron deficiency Qualified Code(s): D50.9 - Iron deficiency anemia, unspecified Diabetes mellitus Qualifiers: Diabetes mellitus type: type 2 Diabetes mellitus longterm insulin use: without extermination supervisor use Diabetes mellitus complication status: with kidney complications Diabetes mellitus complication detail: with chronic kidney disease Chronic kidney disease stage: stage 4 (severe) Qualified Code(s): E11.22 - Type 2 diabetes mellitus with diabetic chronic kidney disease Pneumonia Qualifiers: Pneumonia type: due to unspecified organism Laterality: bilateral Lung location: unspecified part of lung Qualified Code(s): J18.9 - Pneumonia, unspecified organism - Discharge Information *PRESCRIPTION DRUG MONITORING PROGRAM REVIEWED*: Not Applicable *COPY OF PRESCRIPTION DRUG MONITORING REPORT IN PATIENT [place]: Not Applicable Referrals: Trupti Quiroz PA [Primary Care Provider] - Forms: ED Department Discharge, Interfacility Transfer [facility] Sepsis Event Note (ED) - Focused Exam Vital Signs: Vital Signs Temp Pulse Resp BP Pulse Ox 07/25/20 14:00 86 20 149/68 H 93 L 07/25/20 13:30 90 20 150/66 H 93 L 07/25/20 13:00 88 23 H 150/69 H 92 L 07/25/20 12:30 87 24 H 152/97 H 92 L 07/25/20 12:00 83 22 H 144/70 H 96 07/25/20 11:30 36.8 C 86 22 H 166/78 H 90 L - Problem List & Annotations (1) Heart failure SNOMED Code(s): 20225054 Code(s): I50.9 - HEART FAILURE, UNSPECIFIED Status: Acute Priority: High Current Visit: No Annotation/Comment:: Recurrent CHF with history of diastolic dysfunction as above. IV Lasix given in the emergency room as above. Cardiology consultation depending on his clinical course. Note negative cardiac enzymes and stable EKG today. No echocardiogram, etc. secondary to patient's comfort care. No chest pain or anginal type symptoms. Consider standard rule out of NV orders. Initial telephone consultation at 1 PM with his daughter, Sharon, telephone number [phone], who agrees to patient's transfer to the [facility]. Subsequent telephone consultation with the [facility] in [place] at 1:10 PM, 1:15 PM, and then at 1:[address] Gotti, hospitalist, who does accept the patient for direct admission, with no further treatment recommendations given. He did perform an influenza B and repeat COVID-19 screen immediately upon his arrival to this facility. Ambulance transfer with make up worker accompaniment. Vital signs and clinical exam were stable at time of transfer. Qualifiers: Heart failure type: combined systolic and diastolic Heart failure chronicity: acute on chronic Qualified Code(s): I50.43 - Acute on chronic combined systolic (congestive) and diastolic (congestive) heart failure (2) Pneumonia SNOMED Code(s): 155390469 Code(s): J18.9 - PNEUMONIA, UNSPECIFIED ORGANISM Status: Acute Priority: High Current Visit: No Onset Date: 07/25/20 Annotation/Comment:: Evidence of probable bilateral pneumonia particularly in the right middle lobe. No direct evidence or history of aspiration pneumonia. Blood cultures x2 were collected. Sputum specimen could not be collected in the emergency room. COVID-19 screen at the [place] [facility] was apparently negative on 07/23. Repeat COVID-19 test with additional influenza screen by accepting providers at time of his arrival to their facility. IV Levaquin was initiated in the emergency room prior to transfer. Blood cultures x2 were collected prior to initiation of this therapy. Qualifiers: Pneumonia type: due to unspecified organism Laterality: bilateral Lung location: unspecified part of lung Qualified Code(s): J18.9 - Pneumonia, unspecified organism (3) Elevated d-dimer SNOMED Code(s): 351608354 Code(s): R79.89 - OTHER SPECIFIED ABNORMAL FINDINGS OF BLOOD CHEMISTRY Status: Acute Priority: High Current Visit: No Annotation/Comment:: Known history of D-dimer elevation with initial evaluation in this facility on 06/23/2020 with negative venous Doppler studies of the lower extremities. Patient was transferred to the [facility] at that time for possible VQ scan of the lungs in their facility, however this was apparently not conducted based on telephone consultation with Dr. Gotti as above. Secondary to his renal insufficiency he is not a candidate for CTA of the chest with further work-up depending on his clinical course. No clinical evidence of DVT or PE despite problems with refractory hypoxia as above. (4) COPD (chronic obstructive pulmonary disease) SNOMED Code(s): 83802292 Code(s): J44.9 - CHRONIC OBSTRUCTIVE PULMONARY DISEASE, UNSPECIFIED Status: Chronic Priority: High Current Visit: No Annotation/Comment:: Chronic O2 dependent COPD with increasing O2 requirement today. O2 sats remained variable throughout his ER care, however patient was successfully able to be titrated to high flow nasal cannula currently at 4 L/min by nasal cannula prior to transfer. Qualifiers: COPD type: COPD with acute lower respiratory infection Qualified Code(s): J44.0 - Chronic obstructive pulmonary disease with (acute) lower respiratory infection (5) Chronic kidney disease SNOMED Code(s): 002220775 Code(s): N18.9 - CHRONIC KIDNEY DISEASE, UNSPECIFIED Status: Acute Priority: Medium Current Visit: No Annotation/Comment:: Known diabetic nephropathy. Continue to observe closely secondary to IV Lasix therapy as above. Qualifiers: Chronic kidney disease stage: stage 3 (moderate) (6) Diabetes SNOMED Code(s): 22430301 Code(s): E11.9 - TYPE 2 DIABETES MELLITUS WITHOUT COMPLICATIONS Status: Chronic Priority: Medium Current Visit: No Annotation/Comment:: Stable by patient history. Consider glycosylated hemoglobin by accepting providers. Qualifiers: Diabetes mellitus type: type 2 Diabetes mellitus extermination supervisor insulin use: without longterm use Diabetes mellitus complication status: with kidney complications Diabetes mellitus complication detail: with chronic kidney disease Chronic kidney disease stage: stage 4 (severe) Qualified Code(s): E11.22 - Type 2 diabetes mellitus with diabetic chronic kidney disease; N18.4 - Chronic kidney disease, stage 4 (severe) (7) Complete right bundle branch block SNOMED Code(s): 452264368 Code(s): I45.10 - UNSPECIFIED RIGHT BUNDLE-BRANCH BLOCK Status: Chronic Priority: Medium Current Visit: No Annotation/Comment:: Stable EKG today. (8) Confusion SNOMED Code(s): 809454724 Code(s): R41.0 - DISORIENTATION, UNSPECIFIED Status: Chronic Priority: Medium Current Visit: No Annotation/Comment:: Stable by history from the [place] [facility] as above. (9) First degree AV block SNOMED Code(s): 722361913 Code(s): I44.0 - ATRIOVENTRICULAR BLOCK, FIRST DEGREE Status: Chronic Priority: Medium Current Visit: No Annotation/Comment:: Stable EKG today. (10) Iron deficiency anemia SNOMED Code(s): 52038590 Code(s): D50.9 - IRON DEFICIENCY ANEMIA, UNSPECIFIED Status: Chronic Priority: Medium Current Visit: No Annotation/Comment:: Chronic disease likely a cofactor with history of iron deficiency diabetic nephropathy, etc. Further work-up by accepting providers depending on his clinical course. No evidence of acute GI bleed, etc. Qualifiers: Iron deficiency anemia type: unspecified iron deficiency Qualified Code(s): D50.9 - Iron deficiency anemia, unspecified (11) Hypocalcemia SNOMED Code(s): 8493816 Code(s): E83.51 - HYPOCALCEMIA Status: Acute Current Visit: No Onset Date: 07/25/20 Annotation/Comment:: Observe for now. Consider PTH, phosphate level, etc. depending on his clinical course. (12) Need for comfort care SNOMED Code(s): 769533476, 891277061 Code(s): GBR1273 - Status: Chronic Priority: High Current Visit: No Annotation/Comment:: Comfort care confirmed both from [place] [facility] records and also during telephone consultation with his daughter, Sharon, as above. - Problem List Review Problem List Initiated/Reviewed/Updated: Yes - My Orders Last 24 Hours: My Active Orders 07/25/20 Breakfast Nothing Per Oral Diet [DIET] 07/25/20 11:32 Cardiac Monitoring [RC] CONTINUOUS Communication Order [RC] ROUTINE EKG Documentation Completion [RC] ASDIRECTED Oxygen Therapy, ED [RC] CONTINUOUS Peripheral IV Care [RC] . DIRECTED Pulse Oximetry [RC] CONTINUOUS Up With Assistance [RC] ASDIRECTED Chest 1V Frontal [CR] Stat CULTURE SPUTUM + SMEAR [RM] Urgent Sodium Chloride 0.9% [Saline Flush] 10 ml FLUSH ASDIRECTED PRN Obtain Past Medical Record [OM.PC] Stat Peripheral IV Insertion Adult [OM.PC] Stat 07/25/20 11:56 Resuscitation Status Routine 07/25/20 12:48 Blood Culture x2 Reflex Set [OM.PC] Urgent 07/25/20 12:53 CULTURE BLOOD [BC] Stat CULTURE BLOOD [BC] Stat - Assessment/Plan Last 24 Hours: My Active Orders 07/25/20 Breakfast Nothing Per Oral Diet [DIET] 07/25/20 11:32 Cardiac Monitoring [RC] CONTINUOUS Communication Order [RC] ROUTINE EKG Documentation Completion [RC] ASDIRECTED Oxygen Therapy, ED [RC] CONTINUOUS Peripheral IV Care [RC] . DIRECTED Pulse Oximetry [RC] CONTINUOUS Up With Assistance [RC] ASDIRECTED Chest 1V Frontal [CR] Stat CULTURE SPUTUM + SMEAR [RM] Urgent Sodium Chloride 0.9% [Saline Flush] 10 ml FLUSH ASDIRECTED PRN Obtain Past Medical Record [OM.PC] Stat Peripheral IV Insertion Adult [OM.PC] Stat 07/25/20 11:56 Resuscitation Status Routine 07/25/20 12:48 Blood Culture x2 Reflex Set [OM.PC] Urgent 07/25/20 12:53 CULTURE BLOOD [BC] Stat CULTURE BLOOD [BC] Stat Assessment:: As above Plan: As above. Extensive precautions were given to the patient, who is in agreement with the treatment plan.
[2020-07-25 12:31] LABS: PTT,PARTIAL THROMBOPLSTIN TIME 21.4 SEC (24.5-32.8)
[2020-07-25 12:39] LABS: CHLORIDE,CL 108 mmol/L (98-107); SODIUM,NA 141 mmol/L (136-145)
[2020-07-25] MEDS ORDERED: Furosemide 40 MG/4 ML VIAL IVPUSH ONE (12:47)
[2020-07-25] MEDS ORDERED: Levofloxacin/Dextrose 5%-Water 500 MG in Premix Bag 1 BAG IV ONE (12:50)
== END 2020-07-25 14:25 ==
LOC: LL.ED 11:29
DX: J44.0 Chronic obstructive pulmonary disease with (acute) lower respiratory infection (principal); J18.9 Pneumonia, unspecified organism; E11.22 Type 2 diabetes mellitus with diabetic chronic kidney disease; D50.9 Iron deficiency anemia, unspecified; I13.0 Hypertensive heart and chronic kidney disease with heart failure and stage 1 through stage 4 chronic kidney disease, or unspecified chronic kidney disease; I50.43 Acute on chronic combined systolic (congestive) and diastolic (congestive) heart failure; N18.9 Chronic kidney disease, unspecified; R41.0 Disorientation, unspecified; R79.1 Abnormal coagulation profile; I97.89 Other postprocedural complications and disorders of the circulatory system, not elsewhere classified; F41.9 Anxiety disorder, unspecified; F32.9 Major depressive disorder, single episode, unspecified; I44.0 Atrioventricular block, first degree; E78.00 Pure hypercholesterolemia, unspecified; E11.21 Type 2 diabetes mellitus with diabetic nephropathy; M19.90 Unspecified osteoarthritis, unspecified site; E11.42 Type 2 diabetes mellitus with diabetic polyneuropathy; E03.9 Hypothyroidism, unspecified; G30.9 Alzheimer's disease, unspecified; F02.80 Dementia in other diseases classified elsewhere, unspecified severity, without behavioral disturbance, psychotic disturbance, mood disturbance, and anxiety; G80.9 Cerebral palsy, unspecified; Z88.8 Allergy status to other drugs, medicaments and biological substances; Z88.1 Allergy status to other antibiotic agents; Z79.82 Long term (current) use of aspirin; Z79.899 Other long term (current) drug therapy; Z99.81 Dependence on supplemental oxygen; Z74.9 Problem related to care provider dependency, unspecified
CPT/HCPCS: 36415; 71045; 80053; 82550; 82553; 83605; 83735; 83880; 84443; 84484; 85025; 85379; 85610; 85730; 87040; 93005; 93010; 96365; 96375; 99284; 99285-25; J1940; J1956

== ENCOUNTER 2020-11-12 19:11 | Emergency (ER) | payer MEDICARE, OTHER ==
--- NOTE | 2020-11-12 19:30 | EDM.PDOC ---
ED HPI GENERAL MEDICAL PROBLEM - General Chief Complaint: Respiratory Problem Stated Complaint: post choking episode resolved Time Seen by Provider: 11/12/20 19:25 Source of Information: Reports: Patient, EMS, Detention Records, Old Records ([facility] EMR. No paper hospital chart available.). Denies: EMS Notes Reviewed History Limitations: Reports: No Limitations - History of Present Illness INITIAL COMMENTS - FREE TEXT/NARRATIVE: The patient was brought to the emergency room via ambulance with child care director accompaniment with no treatment in route. The patient apparently was chewing a piece of chicken, which did have a bone, when he suddenly started choking. This occurred at about 6 PM this afternoon with 3 Heimlich maneuvers required by skilled nursing staff in the dining room with excellent results after these maneuvers. Patient did have some brief mild retching without true emesis or nausea after this episode. He denies any aspiration, foreign body sensation in the throat, etc. He was apparently using his dentures at that time. The patient denies any chest pain/pressure, heart flutter, dizziness, orthostasis, orthopnea, diaphoresis, paresthesias, recent decreased exercise tolerance, or any other anginal-type symptoms. No recent history of abdominal pain, heartburn, nausea, diarrhea, melena, gross hematochezia, or any food intoleranc e, including fatty foods, etc.. He denies any gross hematuria, colic, or the UTI symptoms. The patient also denies any recent fever, cough, wheezing, dyspnea, etc... He denies any current pain or discomfort. Onset: Today, Sudden, Unknown/Unsure Onset Date: 11/12/20 Onset Time: 18:00 Duration: Resolved Prior to Arrival Location: Reports: Other (No pain) Quality: Denies: Same as Previous Episode Improves with: Reports: Other (Heimlich maneuvers as above) Worsens with: Reports: None Context: Reports: Other (As above). Denies: Sick Contact, Trauma Associated Symptoms: Reports: Confusion (Stable chronic), Cough (Brief during choking episode). Denies: Chest Pain, cough w sputum, Diaphoresis, Fever/Chills, Headaches, Loss of Appetite, Malaise, Nausea/Vomiting (As above), Shortness of Breath, Syncope Treatments BOOK COVERER: Reports: Other (see below) (As above) - Related Data Allergies Allergy/AdvReac Type Severity Reaction Status Date / Time celecoxib [From Celebrex] Allergy Other Verified 11/12/20 19:23 dicloxacillin Allergy Other Verified 11/12/20 19:23 vancomycin Allergy Other Verified 11/12/20 19:23 Home Meds: Home Meds Albuterol Sulfate [Proair Respiclick] 2 puff IH Q4HR PRN 06/22/20 [History] Aspirin [Aspirin EC] 81 mg PO DAILY 06/22/20 [History] Budesonide/Formoterol [Symbicort 160-4.5 MCG] 2 puff INH BID 06/22/20 [History] Cholecalciferol (Vitamin D3) [Vitamin D3] 2,000 unit PO DAILY 06/22/20 [History] Ferrous Sulfate 325 mg PO TID 06/22/20 [History] Finasteride 5 mg PO DAILY 06/22/20 [History] Fluticasone Propionate [Flonase] 2 spray NS DAILY 06/22/20 [History] Furosemide 20 mg PO DAILY 06/22/20 [History] Gabapentin [Neurontin] 600 mg PO 199906/22/20 [History] Levothyroxine Sodium [Synthroid] 175 mcg PO ACBREAKFAST 06/22/20 [History] Lidocaine 5% [Lidoderm 5%] 1 patch TOP Q12HR PRN 06/22/20 [History] Omeprazole 20 mg PO DAILY 06/22/20 [History] Sennosides/Docusate Sodium [Senna-S 8.6-50 mg Tablet] 1 each PO BID 06/22/20 [History] Tamsulosin [Flomax] 0.4 mg PO 199906/22/20 [History] amLODIPine [Norvasc] 5 mg PO DAILY 06/22/20 [History] atorvaSTATin [Lipitor] 20 mg PO BEDTIME 06/22/20 [History] buPROPion HCL [Bupropion HCl Sr] 100 mg PO 06/22/20 [History] lisinopriL [Prinivil] 40 mg PO DAILY 06/22/20 [History] traMADol [Ultram] 50 mg PO BID 06/22/20 [History] Lactobacillus Acidophilus [Acidophilus] 1 each PO DAILY 07/25/20 [History] guaiFENesin 2 tsp PO Q6H PRN 07/25/20 [History] Acetaminophen [Tylenol] 650 mg PO Q6H PRN 11/12/20 [History] Past Medical History HEENT History: Reports: Allergic Rhinitis, Hard of Hearing, Impaired Vision, Other (See Below) Other HEENT History: Nasal septal deviation. Dry eye syndrome. Presbycusis. Cardiovascular History: Reports: Aneurysm, Cardiomyopathy, Heart Failure, High Cholesterol, Hypertension, Other (See Below). Denies: CAD, Heart Murmur, NE Other Cardiovascular History: AAA. First-degree AV block, complete right bundle branch block. D-dimer elevation initially diagnosed on 06/23/2020. Recurrent CHF with diastolic dysfunction. Bradycardia. History of D-dimer elevation. Respiratory History: Reports: Bronchitis, Recurrent, COPD, Intubation, Previous, Pneumonia, Recurrent, Pulmonary Fibrosis, Sleep Apnea, Other (See Below). 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 Gastrointestinal History: Reports: Chronic Constipation, Colon Polyp, GERD Genitourinary History: Reports: BPH, Chronic Renal Insuffiency, Diabetic Nephropathy, Prostate Disorder, Other (See Below) Other Genitourinary History: Bilateral renal cysts versus polycystic renal disease. Diabetic nephropathy. Musculoskeletal History: Reports: Arthritis, Back Pain, Chronic, Fracture, Osteoarthritis, Osteoporosis, Other (See Below) Other Musculoskeletal History: Right hip fracture with surgery as below. 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 Neurological History: Reports: Alzheimers Disease, Cerebral Palsy, Neuropathy, Diabetic, Neuropathy, Peripheral, Other (See Below) Other Neuro History: Beginning organic brain syndrome. Generalized weakness. Psychiatric History: Reports: Anxiety, Dementia, Depression Endocrine/Metabolic History: Reports: Diabetes, Type II, Hypothyroidism, Osteopenia, Osteoporosis, Other (See Below). Denies: Diabetes, Type I, IDDM Other Endocrine/Metabolic History: Hypocalcemia. Hematologic History: Reports: Anemia, Iron Deficiency, Other (See Below) Other Hematologic History: Chronic anemia. Thrombocytopenia. Dermatologic History: Reports: Venous Stasis Dermatitis - Infectious Disease History Infectious Disease History: Reports: MRSA. Denies: Novel Coronavirus - Past Surgical History HEENT Surgical History: Reports: Cataract Surgery, Oral Surgery, Other (See Below) Other HEENT Surgeries/Procedures: Complete teeth extraction with complete dentures uppers and lowers. GI Surgical History: Reports: Colonoscopy, Polypectomy Musculoskeletal Surgical History: Reports: Joint Replacement, Other (See Below) Other Musculoskeletal Surgeries/Procedures:: Right hip TEP. - Past Imaging History Past Imaging History: Reports: Ultrasound (Bilateral renal ultrasound on 06/23/2020.), Venous Doppler (Lower extremities bilaterally negative on 06/23/2020.) - History Comment History Comment: Note incomplete history secondary to mild organic brain syndrome. Social & Family History - Family History Family Medical History: Unobtainable - Tobacco Use Tobacco Use Status *Q: Current Every Day Tobacco User Tobacco Use Within Last Twelve Months: Cigarettes Years of Tobacco use: 69 Packs/Tins Daily: 0.5 Packs/Tins Daily Comment: Maximum use of 2 packs/day. Used Tobacco, but Quit: No Smoking Cessation Information Provided To Patient: Yes Second Hand Smoke Exposure: No Second Hand Smoke Education Provided: No - Caffeine Use Caffeine Use: Reports: Coffee - Living Situation & Occupation Living situation: Reports: Extended Care Facility ([facility] in 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 ED EXAM, GENERAL - Physical Exam Exam: See Below Exam Limited By: No Limitations General Appearance: Alert, WD/WN, No Apparent Distress Eye Exam: Bilateral Eye: EOMI, Normal Inspection (No vertigo or nystagmus), PERRL Ears: Normal External Exam, Normal Canal, Normal TMs, Hearing Loss (Mild bilateral presbycusis). No: Hearing Grossly Normal Nose: Normal Inspection, Normal Mucosa, No Blood Throat/Mouth: Normal Inspection, Normal Lips, Normal Gums, Normal Oropharynx, Normal Voice, No Airway Compromise, Other (No evidence of oral trauma). No: Normal Teeth (Complete absent dentition with patient not having his dentures at this time), Dysphagia, Inflammation, Perioral Cyanosis Head: Atraumatic, Normocephalic. No: Facial Swelling, Facial Tenderness, Sinus Tenderness Neck: Supple, Non-Tender, Full Range of Motion, Carotid Bruit (Mild bilateral c arotid bruits). No: Lymphadenopathy (L), Lymphadenopathy (R), Thyromegaly Respiratory/Chest: No Respiratory Distress, No Accessory Muscle Use, Chest Non- Tender, Rales (Mild bilateral baseline), Other (Heart monitor noted on left anterior chest wall). No: Rhonchi, Wheezing, Pleural Rub, Retractions Cardiovascular: Normal Peripheral Pulses, Regular Rate, Rhythm, No Gallop, No JVD, No Murmur, No Rub. No: No Edema (Dependent edema as below), Gallop/S3, Gallop/S4, Friction Rub Peripheral Pulses: 2+: Radial (L), Radial (R) GI/Abdominal: Normal Bowel Sounds, Soft, Non-Tender, No Organomegaly, No Distention, No Abnormal Bruit, No Mass. No: Guarding (Male) Exam: Deferred Rectal (Males) Exam: Deferred Back Exam: Normal Inspection, Full Range of Motion, NT Extremities: Normal Range of Motion, Normal Capillary Refill, Pedal Edema (Trace to +1 bilateral pedal/pretibial edema). No: Non-Tender, No Pedal Edema, Jimenez's Sign (No got the crackers drink small amounts just a little bit okay now okay) Neurological: Alert, Oriented, CN II-XII Intact, No Motor/Sensory Deficits, Confused (Stable mild organic brain syndrome) Psychiatric: Normal Affect, Normal Mood Skin Exam: Ecchymosis (Mild occasional in the dorsal hand surfaces and forearms bilaterally. No petechiae.). No: Diaphoretic, Wound/Incision Lymphatic: No Adenopathy Course - Vital Signs Last Recorded V/S: Last Vital Signs Temp 37.1 C 11/12/20 19:14 Pulse 59 L 11/12/20 19:28 Resp 16 11/12/20 19:28 BP 152/77 H 11/12/20 19:28 Pulse Ox 94 L 11/12/20 19:28 Vital Signs - 24 hr 11/12/20 11/12/20 19:14 19:28 Temperature [ 37.1 C Oral] Pulse, 62 59 L Peripheral [ Pulse Oximetry] Respiratory 20 16 Rate Blood Pressure 145/71 H 152/77 H [Upper Arm] O2 Sat by Pulse 95 94 L Oximetry - Orders/Labs/Meds Orders: Active Orders 24 hr Category Date Time Status Cardiac Monitoring [RC] . DIRECTED Care 11/12/20 19:34 Active Obtain Past Medical Record [OM.PC] Routine Oth 11/12/20 19:30 Active Labs: None Meds: None - Radiology Interpretation Free Text/Narrative:: ekg monitor shows normal sinus rhythm in the 60s with occasional brief bradycardia with lowest heart rate of 57 during his emergency room care. No other arrhythmia noted. Departure - Departure Time of Disposition: 20:20 Disposition: Home, Self-Care 01 Condition: Good Clinical Impression: Need for comfort care, Bradycardia, Tobacco abuse counseling, Confusion COPD (chronic obstructive pulmonary disease) Qualifiers: COPD type: emphysema Emphysema type: panlobular Qualified Code(s): J43.1 - Panlobular emphysema Choking due to food (regurgitated) Qualifiers: Encounter type: initial encounter Qualified Code(s): T17.320A - Food in larynx causing asphyxiation, initial encounter Hypertension Qualifiers: Hypertension type: essential hypertension Qualified Code(s): I10 - Essential (primary) hypertension CHF (congestive heart failure) Qualifiers: Heart failure type: unspecified Heart failure chronicity: chronic Qualified Code(s): I50.9 - Heart failure, unspecified - Discharge Information *PRESCRIPTION DRUG MONITORING PROGRAM REVIEWED*: Not Applicable *COPY OF PRESCRIPTION DRUG MONITORING REPORT IN PATIENT [place]: Not Applicable Instructions: Steps to Quit Smoking, [id number], Health Risks of Smoking, Choking, Adult Referrals: Trupti Quiroz PA [Primary Care Provider] - Forms: ED Department Discharge Additional Instructions: 1. Follow up with your regular provider in 10-14 days as needed, if symptoms persist. Bring these discharge instructions with you to that visit. 2. Remember to chew your food completely and swallow slowly. Eat smaller volumes of food and drink smaller volumes liquids and always eat upright. group home staff will observe you with continuation of aspiration precautions. 3. Please remember that we are ALWAYS here for you and want to answer any questions you may have. Feel free to call the hospital any time and we call you back GISELLE. 4. Stop all tobacco use GISELLE as directed/per provided information and consider contacting Quit [facility]ne, etc.. Sepsis Event Note (ED) - Evaluation Sepsis Screening Result: No Definite Risk - Focused Exam Vital Signs: Vital Signs Temp Pulse Resp BP Pulse Ox 11/12/20 19:28 59 L 16 152/77 H 94 L 11/12/20 19:14 37.1 C 62 20 145/71 H 95 - Problem List & Annotations (1) Choking due to food (regurgitated) SNOMED Code(s): 01935201 Code(s): T17.320A - FOOD IN LARYNX CAUSING ASPHYXIATION, INITIAL ENCOUNTER Status: Acute Priority: High Current Visit: No Onset Date: 11/12/20 Annotation/Comment:: Successful Heimlich maneuvers as above. Patient is nonsymptomatic in the emergency room on arrival. He was able to eat cookies, bread, cheese, and drink fluids without difficulty during his emergency room visit. I did notice that he tended to keep large amounts of food and liquids in his mouth prior to swallowing. Aspiration precautions were extensively discussed, including chewing well, eating and drinking small amounts at a time, etc. Note that he was able to eat and drink without difficulty in spite of not having his dentures in the emergency room. Continue aspiration precautions by skilled nursing staff. No evidence of dysphagia. Consider swallowing study depending on his clinical course. Qualifiers: Encounter type: initial encounter Qualified Code(s): T17.320A - Food in larynx causing asphyxiation, initial encounter (2) COPD (chronic obstructive pulmonary disease) SNOMED Code(s): 40476892 Code(s): J44.9 - CHRONIC OBSTRUCTIVE PULMONARY DISEASE, UNSPECIFIED Status: Chronic Priority: High Current Visit: No Annotation/Comment:: Previously O2 dependent with excellent O2 saturations on room air at rest during emergency room care. No evidence of aspiration. No recent fever or bronchitic type symptoms. Qualifiers: COPD type: emphysema Emphysema type: panlobular (3) Bradycardia SNOMED Code(s): 50478098 Code(s): R00.1 - BRADYCARDIA, UNSPECIFIED Status: Chronic Priority: Medium Current Visit: No Annotation/Comment:: Occasional borderline bradycardia and during today's emergency room visit. Note that a heart monitor was recently placed on the patient with apparent follow-up with cardiology at the [facility] in [place] in about 2 weeks. Patient does have a history of a complete right bundle branch block, first-degree AV block, and CHF in the past. No current chest pain or anginal type symptoms. (4) Hypertension SNOMED Code(s): 37771153 Code(s): I10 - ESSENTIAL (PRIMARY) HYPERTENSION Status: Chronic Priority: Medium Current Visit: No Annotation/Comment:: Mildly elevated in the emergency room. Continue to observe closely by regular provider and skilled nursing staff. Qualifiers: Hypertension type: essential hypertension Qualified Code(s): I10 - Essential (primary) hypertension (5) Tobacco abuse counseling SNOMED Code(s): 206103810, 793523145, 411574351 Code(s): Z71.6 - TOBACCO ABUSE COUNSELING Status: Chronic Priority: Medium Current Visit: No Annotation/Comment:: Tobacco cessation was strongly encouraged with information provided. (6) Confusion SNOMED Code(s): 130035795 Code(s): R41.0 - DISORIENTATION, UNSPECIFIED Status: Chronic Priority: Medium Current Visit: No Annotation/Comment:: Stable by history from the skilled nursing and also based on my previous evaluations of this patient in this facility. (7) Need for comfort care SNOMED Code(s): 251926528, 394779709 Code(s): CZI0077 - Status: Chronic Priority: High Current Visit: No Annotation/Comment:: Comfort care confirmed both from skilled nursing records. - Problem List Review Problem List Initiated/Reviewed/Updated: Yes - My Orders Last 24 Hours: My Active Orders 11/12/20 19:30 Obtain Past Medical Record [OM.PC] Routine 11/12/20 19:34 Cardiac Monitoring [RC] . DIRECTED - Assessment/Plan Last 24 Hours: My Active Orders 11/12/20 19:30 Obtain Past Medical Record [OM.PC] Routine 11/12/20 19:34 Cardiac Monitoring [RC] . DIRECTED Assessment:: As above Plan: As above. Extensive precautions were given to the patient, who is in agreement with the treatment plan. See Patient Instructions for further treatment and plan. Copy of this emergency room note to be sent to [facility] in [place].
== END 2020-11-12 20:20 | disposition home or self-care (01) ==
LOC: LL.ED 19:11
DX: T17.928A Food in respiratory tract, part unspecified causing other injury, initial encounter (principal); J43.1 Panlobular emphysema; E78.00 Pure hypercholesterolemia, unspecified; I13.0 Hypertensive heart and chronic kidney disease with heart failure and stage 1 through stage 4 chronic kidney disease, or unspecified chronic kidney disease; I50.9 Heart failure, unspecified; J44.9 Chronic obstructive pulmonary disease, unspecified; N18.9 Chronic kidney disease, unspecified; E11.21 Type 2 diabetes mellitus with diabetic nephropathy; M19.90 Unspecified osteoarthritis, unspecified site; E03.9 Hypothyroidism, unspecified; Z74.9 Problem related to care provider dependency, unspecified; K21.9 Gastro-esophageal reflux disease without esophagitis; R00.1 Bradycardia, unspecified; E11.42 Type 2 diabetes mellitus with diabetic polyneuropathy; G80.9 Cerebral palsy, unspecified; G30.9 Alzheimer's disease, unspecified; F02.80 Dementia in other diseases classified elsewhere, unspecified severity, without behavioral disturbance, psychotic disturbance, mood disturbance, and anxiety; Z71.6 Tobacco abuse counseling; R41.0 Disorientation, unspecified; Z88.8 Allergy status to other drugs, medicaments and biological substances; Z88.1 Allergy status to other antibiotic agents; Z79.82 Long term (current) use of aspirin; Z79.899 Other long term (current) drug therapy; Z72.0 Tobacco use
CPT/HCPCS: 99284

== ENCOUNTER 2020-11-21 10:25 | Emergency (ER) | payer MEDICARE, OTHER ==
[2020-11-21] MEDS ORDERED: Sodium Chloride 0.9% 10 ML Syringe FLUSH PRN (10:51)
[2020-11-21] MEDS ORDERED: Albuterol/Ipratropium 3.0-0.5 MG/3 ML Neb Soln NEB ONE (11:09)
[2020-11-21 11:19] LABS: CHLORIDE,CL 109 mmol/L (98-107); SODIUM,NA 143 mmol/L (136-145)
[2020-11-21] MEDS ORDERED: Doxycycline Monohydrate 100 MG Cap PO ONE (12:13)
--- NOTE | 2020-11-21 12:47 | EDM.PDOC ---
ED HPI GENERAL MEDICAL PROBLEM - General Chief Complaint: Chest Pain Stated Complaint: right sided chest pain/SOB Time Seen by Provider: 11/21/20 10:40 Source of Information: Reports: Patient History Limitations: Reports: No Limitations - History of Present Illness INITIAL COMMENTS - FREE TEXT/NARRATIVE: Patient comes emergency department today from the [facility] with concerns of right-sided chest pain. This patient for the last 2 days has had intermittent sharp shooting stabbing left anterolateral chest pain that is tender to palpation. He was seen at the [facility] for the same evaluation yesterday and was told everything was negative and was discharged back to the group home without any changes. He continues to have this intermittent sharp shooting stabbing chest pain on the right side of his chest that is worse with deep breath cough movement and palpation. He does have a history of COPD although he has no increased shortness of breath difficulty breathing. No cough. No increased amount of production of sputum. No fever no chills. No nausea no vomiting. No abdominal pain nausea or vomiting. No hematuria dysuria or urinary frequency. No palpitations weakness dizziness lightheadedness or syncope. No Covid exposure no Covid symptoms. He has received his Covid vaccines. Treatments TRANSPORTATION [employer]: Reports: Oxygen - Related Data Allergies Allergy/AdvReac Type Severity Reaction Status Date / Time celecoxib [From Celebrex] Allergy Other Verified 11/21/20 11:21 dicloxacillin Allergy Other Verified 11/21/20 11:21 vancomycin Allergy Other Verified 11/21/20 11:21 Home Meds: Home Meds Aspirin [Aspirin EC] 81 mg PO DAILY 06/22/20 [History] Budesonide/Formoterol [Symbicort 160-4.5 MCG] 2 puff INH BID 06/22/20 [History] Cholecalciferol (Vitamin D3) [Vitamin D3] 2,000 unit PO DAILY 06/22/20 [History] Ferrous Sulfate 325 mg PO TID 06/22/20 [History] Finasteride 5 mg PO DAILY 06/22/20 [History] Fluticasone Propionate [Flonase] 2 spray NS DAILY 06/22/20 [History] Furosemide 20 mg PO DAILY 06/22/20 [History] Gabapentin [Neurontin] 600 mg PO 2000 06/22/20 [History] Levothyroxine Sodium [Synthroid] 175 mcg PO ACBREAKFAST 06/22/20 [History] Omeprazole 20 mg PO DAILY 06/22/20 [History] Sennosides/Docusate Sodium [Senna-S 8.6-50 mg Tablet] 1 each PO BID 06/22/20 [History] Tamsulosin [Flomax] 0.4 mg PO 2000 06/22/20 [History] buPROPion HCL [Bupropion HCl Sr] 100 mg PO ,16 06/22/20 [History] lisinopriL [Prinivil] 40 mg PO DAILY 06/22/20 [History] traMADol [Ultram] 50 mg PO BID 06/22/20 [History] Acetaminophen [Tylenol] 650 mg PO Q6H PRN 11/12/20 [History] Albuterol [Ventolin HFA] 1 inh INH Q4H PRN 11/21/20 [History] Doxycycline Hyclate 100 mg PO BID #14 capsule 11/21/20 [Rx] Methyl Salicylate/Menthol [Thera-Gesic Analgesic] 1 applic TOP QID PRN 11/21/20 [History] Oxybutynin 0.5 tab PO BID 11/21/20 [History] guaiFENesin/Dextromethorphan [Tussin Dm Syrup] 10 ml PO Q4HR PRN 11/21/20 [History] Past Medical History HEENT History: Reports: Allergic Rhinitis, Hard of Hearing, Impaired Vision, Other (See Below) Other HEENT History: Nasal septal deviation. Dry eye syndrome. Presbycusis. Cardiovascular History: Reports: Aneurysm, Cardiomyopathy, Heart Failure, High Cholesterol, Hypertension, Other (See Below) Other Cardiovascular History: AAA. First-degree AV block, complete right bundle branch block. D-dimer elevation initially diagnosed on 06/23/2020. Recurrent CHF with diastolic dysfunction. Bradycardia. History of D-dimer elevation. 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 Gastrointestinal History: Reports: Chronic Constipation, Colon Polyp, GERD Genitourinary History: Reports: BPH, Chronic Renal Insuffiency, Diabetic Nephropathy, Prostate Disorder, Other (See Below) Other Genitourinary History: Bilateral renal cysts versus polycystic renal disease. Diabetic nephropathy. Musculoskeletal History: Reports: Arthritis, Back Pain, Chronic, Fracture, Osteoarthritis, Osteoporosis, Other (See Below) Other Musculoskeletal History: Right hip fracture with surgery as below. 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 Neurological History: Reports: Alzheimers Disease, Cerebral Palsy, Neuropathy, D iabetic, Neuropathy, Peripheral, Other (See Below) Other Neuro History: Beginning organic brain syndrome. Generalized weakness. Psychiatric History: Reports: Anxiety, Dementia, Depression Endocrine/Metabolic History: Reports: Diabetes, Type II, Hypothyroidism, Osteopenia, Osteoporosis, Other (See Below). Denies: Diabetes, Type I, IDDM Other Endocrine/Metabolic History: Hypocalcemia. Hematologic History: Reports: Anemia, Iron Deficiency, Other (See Below) Other Hematologic History: Chronic anemia. Thrombocytopenia. Dermatologic History: Reports: Venous Stasis Dermatitis - Infectious Disease History Infectious Disease History: Reports: MRSA. Denies: Novel Coronavirus - Past Surgical History HEENT Surgical History: Reports: Cataract Surgery, Oral Surgery, Other (See Below) Other HEENT Surgeries/Procedures: Complete teeth extraction with complete dentures uppers and lowers. GI Surgical History: Reports: Colonoscopy, Polypectomy - Past Imaging History Past Imaging History: Reports: Ultrasound (Bilateral renal ultrasound on 06/23/2020.), Venous Doppler (Lower extremities bilaterally negative on 06/23/2020.) - History Comment History Comment: Note incomplete history secondary to mild organic brain syndrom e. 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 ED EXAM, GENERAL - Physical Exam Exam: See Below Free Text/Narrative:: He is alert appropriate appears in no acute distress. He is requiring 2 L of oxygen which is not typical for him. His oxygen saturation is about 88% on room air. He is able to speak in full sentences. Exam Limited By: No Limitations General Appearance: Alert, WD/WN, No Apparent Distress Ears: Normal External Exam Nose: Normal Inspection Throat/Mouth: Normal Inspection Head: Atraumatic, Normocephalic Neck: Normal Inspection Respiratory/Chest: No Respiratory Distress, No Accessory Muscle Use, Decreased Breath Sounds, Rhonchi (Right lower base), Other (Does have tenderness on the mid right anterolateral chest with even the lightest palpation. There is no bruising swelling ecchymosis bony deformities signs of contusions or abrasions.). No: Crackles, Rales, Wheezing, Stridor, Accessory Muscle Use, Retractions GI/Abdominal: Normal Bowel Sounds, Soft (Male) Exam: Deferred Rectal (Males) Exam: Deferred Back Exam: Normal Inspection Extremities: Normal Inspection, No Pedal Edema, Normal Capillary Refill Neurological: Alert, Oriented, Normal Cognition, No Motor/Sensory Deficits Psychiatric: Normal Affect, Normal Mood Skin Exam: Warm, Dry, Intact, Normal Color, No Rash Course - Vital Signs Last Recorded V/S: Last Vital Signs Temp 97.0 F 11/21/20 10:25 Pulse 62 11/21/20 10:25 Resp 22 H 11/21/20 10:25 BP 113/66 11/21/20 10:25 Pulse Ox 93 L 11/21/20 10:25 - Orders/Labs/Meds Orders: Active Orders 24 hr Category Date Time Status EKG Documentation Completion [RC] ASDIRECTED Care 11/21/20 10:34 Active Peripheral IV Care [RC] . DIRECTED Care 11/21/20 10:53 Active RT Aerosol Therapy [RC] ASDIRECTED Care 11/21/20 11:09 Active Chest 1V Frontal [CR] Stat Exams 11/21/20 10:52 Taken Sodium Chloride 0.9% [Saline Flush] Med 11/21/20 10:51 Active 10 ml FLUSH ASDIRECTED PRN Peripheral IV Insertion Adult [OM.PC] Stat Oth 11/21/20 10:51 Ordered EKG 12 Lead [EK] Stat Ther 11/21/20 10:34 Ordered Medication Orders Sodium Chloride (Sodium Chloride 0.9% 10 Ml Syringe) 10 ml FLUSH ASDIRECTED PRN PRN Reason: Keep Vein Open Labs: Laboratory Tests 11/21/20 11/21/20 11/21/20 Range/Units 10:28 10:45 10:45 WBC 7.4 (4.0-10.2) K/uL RBC 3.37 L (4.33-5.41) M/uL Hgb 10.7 L (13.1-16.8) g/dL Hct 33.3 L (39.0-49.0) % MCV 98.8 H (84.0-98.0) fL MCH 31.8 (28.2-33.3) pg MCHC 32.1 (31.7-36.0) g/dL RDW 13.7 (11.2-14.1) % Plt Count 109 L (150-350) K/uL Neut % (Auto) 74.4 (45.0-80.0) % Lymph % (Auto) 12.4 (10.0-50.0) % [facility] % (Auto) 11.2 (2.0-14.0) % Eos % (Auto) 1.7 (0.0-5.0) % Baso % (Auto) 0.3 (0.0-2.0) % Neut # (Auto) 5.54 (1.40-7.00) K/uL Lymph # (Auto) 0.92 (0.50-3.50) K/uL [facility] # (Auto) 0.83 (0.00-1.00) K/uL Eos # (Auto) 0.13 (0.00-0.50) K/uL Baso # (Auto) 0.02 (0.00-0.20) K/uL Sodium 143 (136-145) mmol/L Potassium 4.4 (3.5-5.1) mmol/L Chloride 109 H (98-107) mmol/L Carbon Dioxide 24.0 (21.0-32.0) mmol/L BUN 40 H (7-18) mg/dL Creatinine 2.36 H (0.51-1.17) mg/dL Est Cr Clr Drug Dosing TNP Estimated GFR (MDRD) 27 mL/min Glucose 114 H (70-99) mg/dL Lactic Acid (0.4-2.0) mmol/L Calcium 8.2 L (8.5-10.1) mg/dL Total Bilirubin 0.4 (0.2-1.0) mg/dL AST 17 (15-37) U/L ALT 13 (12-78) U/L Alkaline Phosphatase 102 (46-116) IU/L Troponin I 0.000 (0.000-0.056) ng/mL C-Reactive Protein 11.4 H (<=0.9) mg/dL NT-Pro-B Natriuret Pep 979 H (0-125) pg/mL Total Protein 6.3 L (6.4-8.2) g/dL Albumin 3.0 L (3.4-5.0) g/dL SARS-CoV-2 RNA ([place]) Negative (NEGATIVE) 11/21/20 Range/Units 10:45 WBC (4.0-10.2) K/uL RBC (4.33-5.41) M/uL Hgb (13.1-16.8) g/dL Hct (39.0-49.0) % MCV (84.0-98.0) fL MCH (28.2-33.3) pg MCHC (31.7-36.0) g/dL RDW (11.2-14.1) % Plt Count (150-350) K/uL Neut % (Auto) (45.0-80.0) % Lymph % (Auto) (10.0-50.0) % [facility] % (Auto) (2.0-14.0) % Eos % (Auto) (0.0-5.0) % Baso % (Auto) (0.0-2.0) % Neut # (Auto) (1.40-7.00) K/uL Lymph # (Auto) (0.50-3.50) K/uL [facility] # (Auto) (0.00-1.00) K/uL Eos # (Auto) (0.00-0.50) K/uL Baso # (Auto) (0.00-0.20) K/uL Sodium (136-145) mmol/L Potassium (3.5-5.1) mmol/L Chloride (98-107) mmol/L Carbon Dioxide (21.0-32.0) mmol/L BUN (7-18) mg/dL Creatinine (0.51-1.17) mg/dL Est Cr Clr Drug Dosing Estimated GFR (MDRD) mL/min Glucose (70-99) mg/dL Lactic Acid 0.9 (0.4-2.0) mmol/L Calcium (8.5-10.1) mg/dL Total Bilirubin (0.2-1.0) mg/dL AST (15-37) U/L ALT (12-78) U/L Alkaline Phosphatase (46-116) IU/L Troponin I (0.000-0.056) ng/mL C-Reactive Protein (<=0.9) mg/dL NT-Pro-B Natriuret Pep (0-125) pg/mL Total Protein (6.4-8.2) g/dL Albumin (3.4-5.0) g/dL SARS-CoV-2 RNA ([place]) (NEGATIVE) Meds: Medications Generic Name Dose Route Start Last Admin Trade Name Freq PRN Reason Stop Dose Admin Sodium Chloride 10 ml 11/21/20 10:51 Sodium Chloride 0.9% 10 Ml Syringe FLUSH ASDIRECTED PRN Keep Vein Open Discontinued Medications Generic Name Dose Route Start Last Admin Trade Name Freq PRN Reason Stop Dose Admin Albuterol/Ipratropium 3 ml 11/21/20 11:09 11/21/20 11:44 Albuterol/Ipratropium 3.0-0.5 Mg/3 Ml Neb Soln NEB 11/21/20 11:10 3 ml ONETIME ONE Administration Doxycycline Monohydrate 100 mg 11/21/20 12:13 11/21/20 12:48 Doxycycline Monohydrate 100 Mg Cap PO 11/21/20 12:14 100 mg ONETIME ONE Administration Doxycycline Monohydrate Confirm 11/21/20 12:51 11/21/20 13:09 Doxycycline Monohydrate 100 Mg Cap Administered 11/21/20 12:52 Not Given Dose 100 mg .ROUTE .STK-MED ONE - Radiology Interpretation Free Text/Narrative:: Chest x-ray per radiology concerning for developing pneumonia in the right lower lobe. No effusion or pneumothorax. Lungs are hyperinflated but unchanged. Some chronic atelectasis in the left lung base. - Re-Assessments/Exams Free Text/Narrative Re-Assessment/Exam: 11/21/20 13:26 IV was established labs are drawn. The patient was placed on oxygen 2 L with improvement of oxygen saturation to 94%. Chest x-ray concerning for pneumonia development in the right lower lobe. Laboratory evaluation Normal white blood cell count of 7.4 hemoglobin 10.7 at baseline platelets 109. CMP shows a chloride of 109 a BUN of 40 creatinine to 2.36 which is at baseline for this patient. Glucose 114. Lactic acid 0.9. C-reactive protein is mildly elevated 11.4. Mild elevation of his proBNP no noted failure on his chest x-ray. Troponin 0 0.000. Covid test is negative. The pain that he is having on his right chest that is reproducible by palpation with even the lightest palpation on his right anterolateral chest is clearly chest wall type pain most likely from the development of this pneumonia in the right lower lobe. He is in no distress he has no increased work of breathing so I do not feel that he needs steroids at this time. He was given a dose of doxycycline in the emergency department we will also send him home with this at the group home for the next 7 days. We will start him on oxygen therapy at the group home as well. He is to recheck with the group home provider in the next 4 to 6 days. He is comfortable with this plan his questions are answered. Departure - Departure Time of Disposition: 12:18 Disposition: Home, Self-Care 01 Clinical Impression: Hypoxia, Chest wall pain Pneumonia Qualifiers: Pneumonia type: due to unspecified organism Laterality: bilateral Lung locat ion: unspecified part of lung Qualified Code(s): J18.9 - Pneumonia, unspecified organism Prescriptions: Doxycycline Hyclate 100 mg PO BID #14 capsule Instructions: Chest Wall Pain, [id number], Community-Acquired Pneumonia, Adult, [id number] Referrals: Trupti Quiroz PA [Primary Care Provider] - Forms: ED Department Discharge Additional Instructions: Continue all previous therapies at the Ve home. Start oxygen to keep sats above 92%. Notify if needing more than 4 liters. Start Doxycycline 1 tablet twice daily for the next 7 days. Rx sent to the [facility] home. Nebulizers MDIs as previous. Recheck with PCP in the next 4-6 days. Return if new or worsen. Sepsis Event Note (ED) - Evaluation Sepsis Screening Result: No Definite Risk - Focused Exam Vital Signs: Vital Signs Temp Pulse Resp BP Pulse Ox 11/21/20 10:25 97.0 F 62 22 H 113/66 93 L - My Orders Last 24 Hours: My Active Orders 11/21/20 10:34 EKG Documentation Completion [RC] ASDIRECTED EKG 12 Lead [EK] Stat 11/21/20 10:51 Sodium Chloride 0.9% [Saline Flush] 10 ml FLUSH ASDIRECTED PRN Peripheral IV Insertion Adult [OM.PC] Stat 11/21/20 10:52 Chest 1V Frontal [CR] Stat 11/21/20 10:53 Peripheral IV Care [RC] . DIRECTED 11/21/20 11:09 RT Aerosol Therapy [RC] ASDIRECTED - Assessment/Plan Last 24 Hours: My Active Orders 11/21/20 10:34 EKG Documentation Completion [RC] ASDIRECTED EKG 12 Lead [EK] Stat 11/21/20 10:51 Sodium Chloride 0.9% [Saline Flush] 10 ml FLUSH ASDIRECTED PRN Peripheral IV Insertion Adult [OM.PC] Stat 11/21/20 10:52 Chest 1V Frontal [CR] Stat 11/21/20 10:53 Peripheral IV Care [RC] . DIRECTED 11/21/20 11:09 RT Aerosol Therapy [RC] ASDIRECTED
[2020-11-21] MEDS ORDERED: Doxycycline Monohydrate 100 MG Cap ONE (12:51)
--- NOTE | 2020-11-21 13:30 | PCM.EKG ---
#1 Interpretation EKG Date: 11/21/20 Time: 10:39 Rhythm: NSR Rate (Beats/Min): 64 P-Wave: Present QRS: Wide (Nonspecific intraventricular block) ST-T: Normal QT: Normal Comparison: No Change
== END 2020-11-21 12:35 | disposition home or self-care (01) ==
LOC: LL.ED 10:25
DX: J18.9 Pneumonia, unspecified organism (principal); R07.89 Other chest pain; R09.02 Hypoxemia; E78.00 Pure hypercholesterolemia, unspecified; J44.9 Chronic obstructive pulmonary disease, unspecified; I13.0 Hypertensive heart and chronic kidney disease with heart failure and stage 1 through stage 4 chronic kidney disease, or unspecified chronic kidney disease; I50.9 Heart failure, unspecified; N18.9 Chronic kidney disease, unspecified; E11.21 Type 2 diabetes mellitus with diabetic nephropathy; N40.0 Benign prostatic hyperplasia without lower urinary tract symptoms; K21.9 Gastro-esophageal reflux disease without esophagitis; M19.90 Unspecified osteoarthritis, unspecified site; G30.9 Alzheimer's disease, unspecified; F02.80 Dementia in other diseases classified elsewhere, unspecified severity, without behavioral disturbance, psychotic disturbance, mood disturbance, and anxiety; E11.22 Type 2 diabetes mellitus with diabetic chronic kidney disease; E11.42 Type 2 diabetes mellitus with diabetic polyneuropathy; Z88.8 Allergy status to other drugs, medicaments and biological substances; Z88.1 Allergy status to other antibiotic agents; Z79.82 Long term (current) use of aspirin; Z79.899 Other long term (current) drug therapy; Z72.0 Tobacco use; Z20.822 Contact with and (suspected) exposure to COVID-19
CPT/HCPCS: 36415; 71045; 80053; 83605; 83880; 84484; 85025; 86140; 93005; 99285-25; A9270-GY; J7620-GY; U0002